=== PATIENT | male | born 1995 | race African-American/Black ===

== ENCOUNTER 2020-07-07 16:55 | Emergency (ER) | payer OTHER, SELFPAY ==
[2020-07-07 17:02] VITALS: BP 126/61; PULSE 85; RESP 16; TEMP 36.7; O2SAT 100; BMI 37.1
[2020-07-07 18:38] VITALS: BP 104/46; PULSE 83; RESP 16; TEMP 36.4; O2SAT 97
--- NOTE | 2020-07-07 19:55 | ED_ITS ---
HPI - Skin/Abscess/Foreign Bdy General Chief complaint: Skin/Abscess/Foreign Body Stated complaint: TAIL BONE PAIN Time Seen by Provider: 07/07/20 18:31 History of Present Illness HPI narrative: patient complains of pain in the buttock area for 3 or 4 days which is worsening, no fever, no injury Related Data Previous Rx's Medication Instructions Recorded doxycycline hyclate 100 mg PO BID 7 Days #14 cap 07/07/20 ibuprofen 600 mg PO Q6H PRN #20 tab 07/07/20 Allergies Allergy/AdvReac Type Severity Reaction Status Date / Time apple [APPLE] Allergy Severe HIVES Verified 07/07/20 18:01 nickel [NICKEL] Allergy Unknown UNKNOWN Verified 07/07/20 18:01 Review of Systems Review of Systems: patient denies fever chills no abdominal pain no changes of bowel or bladder no constipation no diarrhea no rectal bleeding, no other rashes Yes all other systems are reviewed and are negative PMFSH Past Medical History Source: nursing notes reviewed Medical History (Updated 07/07/20 @ 19:50 by SUSSY Sheppard) Asthma Testicular torsion Social History Social History Smoking Status: Never smoker Use of substances other than those prescribed or required for medical reasons: No Advance Directives: No Advance Directives Information Provided: Yes Physical Exam Vital Signs and I&O and Narrative: Vital Signs and I&O: Vital Signs Temp 97.5 F 07/07/20 18:38 Pulse 83 07/07/20 18:38 Resp 16 07/07/20 18:38 BP 104/46 L 07/07/20 18:38 Pulse Ox 97 07/07/20 18:38 Intake & Output 07/07/20 07/07/20 07/08/20 06:59 18:59 06:59 Weight 104.326 kg Body Mass Index 37.1 general appearance A&O x3, no acute distress Neck is supple Respiratory no distress Abdomen soft nontender Skin exam of the skin shows pilonidal redness and tenderness on both sides, there is induration there is no discharge there is no drainage, there is no surrounding cellulitis no surrounding erythema Neuro A&O x3 Course Course Course Narrative: pilonidal abscess procedure note for I and D The pilonidal area is cleansed with Betadine It was injected with 8 cc of 1% lidocaine Two 1 [place] cm incisions were made 1 on the left 1 on the right with drainage of some pus and both sides were packed Sterile dressing was placed Discharge Plan Discharge Clinical Impression: Abscess of skin or subcutaneous tissue Qualifiers: Site of cutaneous abscess: buttock Qualified Code(s): L02.31 - Cutaneous abscess of buttock Patient Disposition: Home, Self-Care Additional Instructions: return to ER in 2 days for packing removal and wound check Return any time for worse pain and swelling, fever, spreading redness, any worse condition or any concerns Prescriptions: New doxycycline hyclate 100 mg capsule 100 mg PO BID 7 Days Qty: 14 RF: 0 ibuprofen 600 mg tablet 600 mg PO Q6H PRN (Reason: pain) Qty: 20 RF: 0 Stand Alone Forms: Work/School Release Interventions: ED Discharge Assessment Last Done: 07/07/20 19:59 Discharge Date/Time: 07/07/20 20:00
== END 2020-07-07 20:00 | disposition home or self-care (01) ==
PROVIDERS: Emergency Provider Internal Medicine
DX: L02.31 Cutaneous abscess of buttock (principal)
CPT/HCPCS: 10080; 99283; 99284

== ENCOUNTER 2020-07-08 20:32 | Inpatient (IN) | payer OTHER, SELFPAY ==
[2020-07-08 20:36] VITALS: BP 98/57; PULSE 138; RESP 20; TEMP 38.8; O2SAT 96; BMI 37.1
--- NOTE | 2020-07-08 20:43 | ECG_ITS ---
Test Reason : PAIN Blood Pressure : / mmHG Vent. Rate : 099 BPM Atrial Rate : 099 BPM P-R Int : 158 ms QRS Dur : 090 ms QT Int : 328 ms P-R-T Axes : 056 -03 032 degrees QTc Int : 420 ms Normal sinus rhythm Normal ECG When compared with ECG of 12-SEP-2019 18:11, Heart rate has increased Referred By: Shira Angulo Electronically Signed By:SAMMIE MUSTAFA MD
--- NOTE | 2020-07-08 20:43 | XR_ITS ---
EXAMINATION: XR CHEST CLINICAL INFORMATION: Tachycardia COMPARISON: 08/03/2013 TECHNIQUE: Frontal view of the chest was obtained. FINDINGS: No significant abnormality is noted involving the heart, lungs, mediastinum, bony thorax or soft tissues. IMPRESSION: Unremarkable examination.
--- NOTE | 2020-07-08 20:48 | CT_ITS ---
EXAMINATION: CT ABDOMEN AND PELVIS WITHOUT CONTRAST CLINICAL INFORMATION: Pilonidal cyst. Sepsis. COMPARISON: None TECHNIQUE: Multidetector volumetric imaging was performed from the superior aspect of the liver through the pubic symphysis. Sagittal and coronal reformatted images were obtained on the technologist's workstation. This CT examination was performed using dose optimization techniques as appropriate, variously including the following: *Automated exposure control *Adjustment of mA and/or kV according to patient size (this includes techniques or standardized protocols for targeted exams where dose is matched to indication/reason for exam; i.e. extremities or head) *Use of iterative reconstruction technique DLP: 643 mGy-cm FINDINGS: LUNG BASES: The visualized lung bases are unremarkable. LIVER, GALLBLADDER, AND BILIARY TREE: Diffuse fatty infiltration with geographic fatty sparing along the gallbladder fossa. The gallbladder is unremarkable with no evidence of radiopaque gallstones, gallbladder wall thickening, or obvious pericholecystic inflammatory changes. PANCREAS: Unremarkable. SPLEEN: Unremarkable. ADRENAL GLANDS: Unremarkable. KIDNEYS AND URETERS: There are a few punctate nonobstructing calculi in each kidney. No hydronephrosis. BLADDER: Unremarkable. GASTROINTESTINAL TRACT: The small and large bowel are unremarkable. The appendix is unremarkable. ABDOMINAL WALL: There is skin thickening along the superior aspect of the gluteal cleft, with hazy attenuation of the underlying fat. Extending anterolaterally to the right and left from the gluteal cleft the soft tissue thickening with foci of air compatible with abscesses, larger on the right measuring 1.5 cm. LYMPH NODES: Normal. VASCULAR: Unremarkable. PELVIC VISCERA: Unremarkable. OSSEOUS STRUCTURES: Unremarkable. IMPRESSION: Subcutaneous collections with foci of gas and surrounding inflammatory changes adjacent to skin thickening of the superior gluteal cleft, possibly an infected pilonidal cyst. No abnormality of the underlying coccyx. No intra-abdominal/pelvic inflammatory process. Diffuse fatty infiltration of the liver. Bilateral punctate nephrolithiasis.
[2020-07-08] MEDS: 0.9 % Sodium Chloride 1,000 ML 999 ML IVCONT ×3 (20:54→21:52)
--- NOTE | 2020-07-08 21:05 | ED.WOUNDLAC ---
HPI - Wound/Laceration General Chief Complaint: Wound/Laceration Stated Complaint: wound Check Time Seen by Provider: 07/08/20 20:42 Source: patient Mode of arrival: ambulatory Limitations: no limitations History of Present Illness Onset (ago): day(s) ( 1 day) Location: other ( pilonidal) Related Data Previous Rx's Medication Instructions Recorded doxycycline hyclate 100 mg PO BID 7 Days #14 cap 07/07/20 ibuprofen 600 mg PO Q6H PRN #20 tab 07/07/20 Allergies Allergy/AdvReac Type Severity Reaction Status Date / Time apple [APPLE] Allergy Severe HIVES Verified 07/07/20 18:01 nickel [NICKEL] Allergy Unknown UNKNOWN Verified 07/07/20 18:01 PMF Past Medical History Medical History (Updated 07/08/20 @ 20:38 by [place]) Asthma Chronic recurrent pilonidal cyst Testicular torsion Social History Social History Smoking Status: Never smoker Physical Exam Vital Signs: Vital Signs: Vital Signs Temp Pulse Resp BP Pulse Ox 07/08/20 20:36 101.9 F H 138 H 20 98/57 L 96 Body Mass Index 37.1 Discharge Plan Discharge Prescriptions: No Action doxycycline hyclate 100 mg capsule 100 mg PO BID 7 Days Qty: 14 RF: 0 ibuprofen 600 mg tablet 600 mg PO Q6H PRN (Reason: pain) Qty: 20 RF: 0
[2020-07-08 21:07] LABS: MANUAL DIFF FLAG NO
[2020-07-08 21:09] LABS: Basophils Percent Auto 0.4 % (0-2); Hematocrit 41.6 % (42-52); Hemoglobin 14.8 g/dl (14.0-18.0); Imm Gran Abs Auto 0.06 X10*3/uL (0.00-0.03); Imm Gran Pct Auto 0.7 % (0.0-0.4); Lymphocytes Absolute Auto 1.1 X10*3/uL (1.2-4.9); Lymphocytes Percent Auto 11.8 % (20-40); Mean Corpuscular HGB Conc 35.6 g/dl (31.0-36.0); Mean Corpuscular Volume 84.4 fL (80-98); Mean Platelet Volume 10.5 fL (9.4-12.4); Monocytes Absolute Auto 0.8 X10*3/uL (0.1-1.2); Monocytes Percent Auto 9.2 % (2-11); Neutrophils Percent Auto 77.9 % (45-73); Platelet Count 215 X10*3/uL (160-400); Red Blood Count 4.93 X10*6/uL (4.60-5.80); Red Cell Distribution Width 11.7 % (11.0-16.0)
--- NOTE | 2020-07-08 21:09 | MHC.EDSEPSIS ---
Review of Systems Review of Systems Constitutional: positive fever and chills, No Weight loss ENT/Mouth: No Hearing loss, No Ear Pain, No Nasal Congestion, No Sinus Pain, No Hoarseness, No sore throat, No Rhinorrhea, No Swallowing Difficulty Cardiovascular: Positive tachycardia, No Chest Pain, No SOB Respiratory: No Cough, No Dyspnea Gastrointestinal: positive nausea, No Vomiting, No Diarrhea, No abdominal Pain, No Hematochezia, No Melena Genitourinary: No Dysuria, No Urinary Frequency, No Hematuria, No Urinary Incontinence, Musculoskeletal: positive back pain, sacral pain, and pain to the buttocks. Skin: Positive abscess site with purulent drainage, No Skin Lesions, No rash Neuro: No Weakness, No Numbness, No Paresthesias, no loss of bowel or bladder incontinence, no saddle anesthesia <Shira Angulo NP - Last Filed: 07/09/20 02:13> Physical Exam Vital Signs: Vital Signs Temp Pulse Resp BP Pulse Ox 07/08/20 23:14 98.8 F 07/08/20 22:29 112 H 18 97 07/08/20 21:50 102.6 F H 113 H 18 111/53 L 97 07/08/20 20:36 101.9 F H 138 H 20 98/57 L 96 Body Mass Index 37.1 <Shira Angulo NP - Last Filed: 07/09/20 02:13> Vital Signs Temp Pulse Resp BP Pulse Ox 07/08/20 23:14 98.8 F 07/08/20 22:29 112 H 18 97 07/08/20 21:50 102.6 F H 113 H 18 111/53 L 97 07/08/20 20:36 101.9 F H 138 H 20 98/57 L 96 Body Mass Index 37.1 <Elsa Mejía MD - Last Filed: 07/09/20 16:23> Appearance: Alert. Oriented X3. moderate distress, slightly diaphoretic, febrile, slight pallor , cranial nerves 2-12 intact, no focal neuro deficits. Eyes: PERLLA EOMI ENT: Pharynx normal. Neck: Normal inspection. Neck supple. CVS: tachycardic, pulses equal to all extremities Respiratory: No respiratory distress. Breath sounds normal. Abdomen: Soft and nontender. Skin: incision noted to coccyx consistent with report of pilonidal cyst I&D, packing in place, purulent drainage noted, tenderness to the perineal area, Normal skin turgor. Extremities: No lower extremity edema Neuro: Oriented X 3. No motor deficit. No sensory deficit. <Shira Angulo NP - Last Filed: 07/09/20 02:13> Course Course Course Narrative: patient's initial vital signs and presentation indicate sepsis. Sepsis protocol for fluids, 3 L as patient weighs 104 kg. order for ceftriaxone and vancomycin, Pain and antipyretics. CT scan of abdomen. <Shira Angulo NP - Last Filed: 07/09/20 02:13> Reevaluation(s) Reevaluation #1: blood sugar 410, patient usually takes 16 units of Humalog for blood sugar at this level, we will give 10 units at this time. Bilirubin is elevated at 1.1 ALT 44, while CBC is negative for leukocytosis I feel that patient does meet sepsis Requirements. <Shira Angulo NP - Last Filed: 07/09/20 02:13> Time: 22:03 <Shira Angulo NP - Last Filed: 07/09/20 02:13> Reevaluation #2: Discussion with hospitalist regarding admission for sepsis. She would like me to discuss this case with on-call surgery as he does have some free air as indicated on CT scan. Discussion with Dr. Mar, he feels that CT results are consistent with I&D that occurred yesterday. Dr. Mar will round on this patient tomorrow. These correspondence is were discussed with hospitalist. <Shira Angulo NP - Last Filed: 07/09/20 02:13> Consultations Consultation #1: Audie <Shira Angulo NP - Last Filed: 07/09/20 02:13> Time: 21:40 <Shira Angulo NP - Last Filed: 07/09/20 02:13> Consultation #2: Isabela <Shira Angulo NP - Last Filed: 07/09/20 02:13> Time: 23:06 <Shira Angulo NP - Last Filed: 07/09/20 02:13> MDM - Fever MDM Narrative Medical decision making narrative: perirectal abscess, bacteremia <Shira Rhodesto, FINANCIAL MANAGEMENT ANALYST - Last Filed: 07/09/20 02:13> Differential Diagnosis Differential diagnosis: Likely cellulitis, fever of unknown origin and sepsis <Shira BonillaDIDI toney - Last Filed: 07/09/20 02:13> Medical Records Attestation: I reviewed the patient's medical records. <Shira BonillaDIDI toney - Last Filed: 07/09/20 02:13> Lab Data Attestation: I reviewed the patient's lab results. <Jacksonmilo AdeleDIDI toney - Last Filed: 07/09/20 02:13> Result diagrams: : 07/09/20 06:52 07/09/20 06:52 <Jacksonmilo AdeleDIDI toney - Last Filed: 07/09/20 02:13> Labs: Lab Results 07/08/20 07/08/20 07/08/20 Range/Units 20:58 20:58 20:58 WBC 9.0 (4.8-10.8) X10*3/uL RBC 4.93 (4.60-5.80) X10*6/uL Hgb 14.8 (14.0-18.0) g/dl Hct 41.6 L (42-52) % MCV 84.4 (80-98) fL MCH 30.0 (27.0-33.0) pg MCHC 35.6 (31.0-36.0) g/dl RDW 11.7 (11.0-16.0) % Plt Count 215 (160-400) X10*3/uL MPV 10.5 (9.4-12.4) fL Immature Gran % (Auto) 0.7 H (0.0-0.4) % Neut % (Auto) 77.9 H (45-73) % Lymph % (Auto) 11.8 L (20-40) % Dixie % (Auto) 9.2 (2-11) % Eos % (Auto) 0.0 (0-4) % Baso % (Auto) 0.4 (0-2) % Lymph # (Auto) 1.1 L (1.2-4.9) X10*3/uL Dixie # (Auto) 0.8 (0.1-1.2) X10*3/uL Eos # (Auto) 0.0 (0.0-0.4) X10*3/uL Baso # (Auto) 0.0 (0.0-0.2) X10*3/uL Abs Immat Gran (auto) 0.06 H (0.00-0.03) X10*3/uL Absolute Neuts (auto) 7.0 (2.0-8.3) X10*3/uL Absolute Nucleated RBC 0.000 (0.0-0.012) X10*3/uL Nucleated RBC % (auto) 0.0 (0.0-0.2) /100WBC PT (10.8-13.0) SEC INR (0.9-1.1) Sodium (135-145) mmol/L Potassium (3.3-5.1) mmol/l Chloride (96-108) mmol/L Carbon Dioxide (22-29) mmol/L Anion Gap (12-20) BUN (9-16) mg/dL Creatinine (0.5-1.4) mg/dL Estim Creat Clear Calc Estimated GFR POC Glucose (60-115) mg/dL Random Glucose (60-115) mg/dL Lactic Acid 1.5 (0.5-2.0) mmol/L Calcium (8.4-10.2) mg/dL Magnesium (1.6-2.6) mg/dL Total Bilirubin 1.1 H (0.0-1.0) mg/dL Direct Bilirubin 0.4 (0.0-0.5) mg/dL AST 33 (5-37) U/L ALT 44 H (0-40) U/L Alkaline Phosphatase 76 (39-117) U/L Troponin I High Sens (<3.5-35.0) ng/L Total Protein 6.8 (6.5-8.0) g/dL Albumin 4.2 (3.5-5.0) g/dL Lipase (8-78) U/L 07/08/20 07/08/20 07/08/20 Range/Units 20:58 20:58 20:58 WBC (4.8-10.8) X10*3/uL RBC (4.60-5.80) X10*6/uL Hgb (14.0-18.0) g/dl Hct (42-52) % MCV (80-98) fL MCH (27.0-33.0) pg MCHC (31.0-36.0) g/dl RDW (11.0-16.0) % Plt Count (160-400) X10*3/uL MPV (9.4-12.4) fL Immature Gran % (Auto) (0.0-0.4) % Neut % (Auto) (45-73) % Lymph % (Auto) (20-40) % Dixie % (Auto) (2-11) % Eos % (Auto) (0-4) % Baso % (Auto) (0-2) % Lymph # (Auto) (1.2-4.9) X10*3/uL Dixie # (Auto) (0.1-1.2) X10*3/uL Eos # (Auto) (0.0-0.4) X10*3/uL Baso # (Auto) (0.0-0.2) X10*3/uL Abs Immat Gran (auto) (0.00-0.03) X10*3/uL Absolute Neuts (auto) (2.0-8.3) X10*3/uL Absolute Nucleated RBC (0.0-0.012) X10*3/uL Nucleated RBC % (auto) (0.0-0.2) /100WBC PT 14.2 H (10.8-13.0) SEC INR 1.2 H (0.9-1.1) Sodium 132 L (135-145) mmol/L Potassium 3.3 (3.3-5.1) mmol/l Chloride 99 (96-108) mmol/L Carbon Dioxide 21 L (22-29) mmol/L Anion Gap 15 (12-20) BUN 8 L (9-16) mg/dL Creatinine 1.06 (0.5-1.4) mg/dL Estim Creat Clear Calc 123.7 Estimated GFR > 60 POC Glucose (60-115) mg/dL Random Glucose 410 H* (60-115) mg/dL Lactic Acid (0.5-2.0) mmol/L Calcium 8.7 (8.4-10.2) mg/dL Magnesium 1.6 (1.6-2.6) mg/dL Total Bilirubin (0.0-1.0) mg/dL Direct Bilirubin (0.0-0.5) mg/dL AST (5-37) U/L ALT (0-40) U/L Alkaline Phosphatase (39-117) U/L Troponin I High Sens 15.1 (<3.5-35.0) ng/L Total Protein (6.5-8.0) g/dL Albumin (3.5-5.0) g/dL Lipase 19 (8-78) U/L 07/08/20 Range/Units 23:06 WBC (4.8-10.8) X10*3/uL RBC (4.60-5.80) X10*6/uL Hgb (14.0-18.0) g/dl Hct (42-52) % MCV (80-98) fL MCH (27.0-33.0) pg MCHC (31.0-36.0) g/dl RDW (11.0-16.0) % Plt Count (160-400) X10*3/uL MPV (9.4-12.4) fL Immature Gran % (Auto) (0.0-0.4) % Neut % (Auto) (45-73) % Lymph % (Auto) (20-40) % Dixie % (Auto) (2-11) % Eos % (Auto) (0-4) % Baso % (Auto) (0-2) % Lymph # (Auto) (1.2-4.9) X10*3/uL Dixie # (Auto) (0.1-1.2) X10*3/uL Eos # (Auto) (0.0-0.4) X10*3/uL Baso # (Auto) (0.0-0.2) X10*3/uL Abs Immat Gran (auto) (0.00-0.03) X10*3/uL Absolute Neuts (auto) (2.0-8.3) X10*3/uL Absolute Nucleated RBC (0.0-0.012) X10*3/uL Nucleated RBC % (auto) (0.0-0.2) /100WBC PT (10.8-13.0) SEC INR (0.9-1.1) Sodium (135-145) mmol/L Potassium (3.3-5.1) mmol/l Chloride (96-108) mmol/L Carbon Dioxide (22-29) mmol/L Anion Gap (12-20) BUN (9-16) mg/dL Creatinine (0.5-1.4) mg/dL Estim Creat Clear Calc Estimated GFR POC Glucose 329 H (60-115) mg/dL Random Glucose (60-115) mg/dL Lactic Acid (0.5-2.0) mmol/L Calcium (8.4-10.2) mg/dL Magnesium (1.6-2.6) mg/dL Total Bilirubin (0.0-1.0) mg/dL Direct Bilirubin (0.0-0.5) mg/dL AST (5-37) U/L ALT (0-40) U/L Alkaline Phosphatase (39-117) U/L Troponin I High Sens (<3.5-35.0) ng/L Total Protein (6.5-8.0) g/dL Albumin (3.5-5.0) g/dL Lipase (8-78) U/L <Shira Angulo NP - Last Filed: 07/09/20 02:13> Lab Results 07/08/20 07/08/20 07/08/20 Range/Units 20:58 20:58 20:58 WBC 9.0 (4.8-10.8) X10*3/uL RBC 4.93 (4.60-5.80) X10*6/uL Hgb 14.8 (14.0-18.0) g/dl Hct 41.6 L (42-52) % MCV 84.4 (80-98) fL MCH 30.0 (27.0-33.0) pg MCHC 35.6 (31.0-36.0) g/dl RDW 11.7 (11.0-16.0) % Plt Count 215 (160-400) X10*3/uL MPV 10.5 (9.4-12.4) fL Immature Gran % (Auto) 0.7 H (0.0-0.4) % Neut % (Auto) 77.9 H (45-73) % Lymph % (Auto) 11.8 L (20-40) % Dixie % (Auto) 9.2 (2-11) % Eos % (Auto) 0.0 (0-4) % Baso % (Auto) 0.4 (0-2) % Lymph # (Auto) 1.1 L (1.2-4.9) X10*3/uL Dixie # (Auto) 0.8 (0.1-1.2) X10*3/uL Eos # (Auto) 0.0 (0.0-0.4) X10*3/uL Baso # (Auto) 0.0 (0.0-0.2) X10*3/uL Abs Immat Gran (auto) 0.06 H (0.00-0.03) X10*3/uL Absolute Neuts (auto) 7.0 (2.0-8.3) X10*3/uL Absolute Nucleated RBC 0.000 (0.0-0.012) X10*3/uL Nucleated RBC % (auto) 0.0 (0.0-0.2) /100WBC PT (10.8-13.0) SEC INR (0.9-1.1) Sodium (135-145) mmol/L Potassium (3.3-5.1) mmol/l Chloride (96-108) mmol/L Carbon Dioxide (22-29) mmol/L Anion Gap (12-20) BUN (9-16) mg/dL Creatinine (0.5-1.4) mg/dL Estim Creat Clear Calc Estimated GFR POC Glucose (60-115) mg/dL Random Glucose (60-115) mg/dL Lactic Acid 1.5 (0.5-2.0) mmol/L Calcium (8.4-10.2) mg/dL Magnesium (1.6-2.6) mg/dL Total Bilirubin 1.1 H (0.0-1.0) mg/dL Direct Bilirubin 0.4 (0.0-0.5) mg/dL AST 33 (5-37) U/L ALT 44 H (0-40) U/L Alkaline Phosphatase 76 (39-117) U/L Troponin I High Sens (<3.5-35.0) ng/L Total Protein 6.8 (6.5-8.0) g/dL Albumin 4.2 (3.5-5.0) g/dL Lipase (8-78) U/L 07/08/20 07/08/20 07/08/20 Range/Units 20:58 20:58 20:58 WBC (4.8-10.8) X10*3/uL RBC (4.60-5.80) X10*6/uL Hgb (14.0-18.0) g/dl Hct (42-52) % MCV (80-98) fL MCH (27.0-33.0) pg MCHC (31.0-36.0) g/dl RDW (11.0-16.0) % Plt Count (160-400) X10*3/uL MPV (9.4-12.4) fL Immature Gran % (Auto) (0.0-0.4) % Neut % (Auto) (45-73) % Lymph % (Auto) (20-40) % Dixie % (Auto) (2-11) % Eos % (Auto) (0-4) % Baso % (Auto) (0-2) % Lymph # (Auto) (1.2-4.9) X10*3/uL Dixie # (Auto) (0.1-1.2) X10*3/uL Eos # (Auto) (0.0-0.4) X10*3/uL Baso # (Auto) (0.0-0.2) X10*3/uL Abs Immat Gran (auto) (0.00-0.03) X10*3/uL Absolute Neuts (auto) (2.0-8.3) X10*3/uL Absolute Nucleated RBC (0.0-0.012) X10*3/uL Nucleated RBC % (auto) (0.0-0.2) /100WBC PT 14.2 H (10.8-13.0) SEC INR 1.2 H (0.9-1.1) Sodium 132 L (135-145) mmol/L Potassium 3.3 (3.3-5.1) mmol/l Chloride 99 (96-108) mmol/L Carbon Dioxide 21 L (22-29) mmol/L Anion Gap 15 (12-20) BUN 8 L (9-16) mg/dL Creatinine 1.06 (0.5-1.4) mg/dL Estim Creat Clear Calc 123.7 Estimated GFR > 60 POC Glucose (60-115) mg/dL Random Glucose 410 H* (60-115) mg/dL Lactic Acid (0.5-2.0) mmol/L Calcium 8.7 (8.4-10.2) mg/dL Magnesium 1.6 (1.6-2.6) mg/dL Total Bilirubin (0.0-1.0) mg/dL Direct Bilirubin (0.0-0.5) mg/dL AST (5-37) U/L ALT (0-40) U/L Alkaline Phosphatase (39-117) U/L Troponin I High Sens 15.1 (<3.5-35.0) ng/L Total Protein (6.5-8.0) g/dL Albumin (3.5-5.0) g/dL Lipase 19 (8-78) U/L 07/08/ Range/Units 23:06 WBC (4.8-10.8) X10*3/uL RBC (4.60-5.80) X10*6/uL Hgb (14.0-18.0) g/dl Hct (42-52) % MCV (80-98) fL MCH (27.0-33.0) pg MCHC (31.0-36.0) g/dl RDW (11.0-16.0) % Plt Count (160-400) X10*3/uL MPV (9.4-12.4) fL Immature Gran % (Auto) (0.0-0.4) % Neut % (Auto) (45-73) % Lymph % (Auto) (20-40) % Dixie % (Auto) (2-11) % Eos % (Auto) (0-4) % Baso % (Auto) (0-2) % Lymph # (Auto) (1.2-4.9) X10*3/uL Dixie # (Auto) (0.1-1.2) X10*3/uL Eos # (Auto) (0.0-0.4) X10*3/uL Baso # (Auto) (0.0-0.2) X10*3/uL Abs Immat Gran (auto) (0.00-0.03) X10*3/uL Absolute Neuts (auto) (2.0-8.3) X10*3/uL Absolute Nucleated RBC (0.0-0.012) X10*3/uL Nucleated RBC % (auto) (0.0-0.2) /100WBC PT (10.8-13.0) SEC INR (0.9-1.1) Sodium (135-145) mmol/L Potassium (3.3-5.1) mmol/l Chloride (96-108) mmol/L Carbon Dioxide (22-29) mmol/L Anion Gap (12-20) BUN (9-16) mg/dL Creatinine (0.5-1.4) mg/dL Estim Creat Clear Calc Estimated GFR POC Glucose 329 H (60-115) mg/dL Random Glucose (60-115) mg/dL Lactic Acid (0.5-2.0) mmol/L Calcium (8.4-10.2) mg/dL Magnesium (1.6-2.6) mg/dL Total Bilirubin (0.0-1.0) mg/dL Direct Bilirubin (0.0-0.5) mg/dL AST (5-37) U/L ALT (0-40) U/L Alkaline Phosphatase (39-117) U/L Troponin I High Sens (<3.5-35.0) ng/L Total Protein (6.5-8.0) g/dL Albumin (3.5-5.0) g/dL Lipase (8-78) U/L <Elsa Mejía MD - Last Filed: 07/09/20 16:23> Imaging Data CT scan - pelvis: Attestation: I personally reviewed and interpreted this imaging study as follows: <Shira Angulo NP - Last Filed: 07/09/20 02:13> Radiologist's impression: FINDINGS: LUNG BASES: The visualized lung bases are unremarkable. LIVER, GALLBLADDER, AND BILIARY TREE: Diffuse fatty infiltration with geographic fatty sparing along the gallbladder fossa. The gallbladder is unremarkable with no evidence of radiopaque gallstones, gallbladder wall thickening, or obvious pericholecystic inflammatory changes. PANCREAS: Unremarkable. SPLEEN: Unremarkable. ADRENAL GLANDS: Unremarkable. KIDNEYS AND URETERS: There are a few punctate nonobstructing calculi in each kidney. No hydronephrosis. BLADDER: Unremarkable. GASTROINTESTINAL TRACT: The small and large bowel are unremarkable. The appendix is unremarkable. ABDOMINAL WALL: There is skin thickening along the superior aspect of the gluteal cleft, with hazy attenuation of the underlying fat. Extending anterolaterally to the right and left from the gluteal cleft the soft tissue thickening with foci of air compatible with abscesses, larger on the right measuring 1.5 cm. LYMPH NODES: Normal. VASCULAR: Unremarkable. PELVIC VISCERA: Unremarkable. OSSEOUS STRUCTURES: Unremarkable. IMPRESSION: Subcutaneous collections with foci of gas and surrounding inflammatory changes adjacent to skin thickening of the superior gluteal cleft, possibly an infected pilonidal cyst. No abnormality of the underlying coccyx. No intra-abdominal/pelvic inflammatory process. Diffuse fatty infiltration of the liver. Bilateral punctate nephrolithiasis. <Shira Angulo NP - Last Filed: 07/09/20 02:13> Chest x-ray: Attestation: I personally reviewed and interpreted this imaging study as follows: <Shira Angulo NP - Last Filed: 07/09/20 02:13> Radiologist's impression: TECHNIQUE: Frontal view of the chest was obtained. FINDINGS: No significant abnormality is noted involving the heart, lungs, mediastinum, bony thorax or soft tissues. IMPRESSION: Unremarkable examination. <Shira Angulo NP - Last Filed: 07/09/20 02:13> ECG Data Attestation: I personally reviewed and interpreted this ECG as follows: <Shira Angulo NP - Last Filed: 07/09/20 02:13> ECG interpretation date: 07/08/20 <Shira Angulo NP - Last Filed: 07/09/20 02:13> ECG interpretation time: 22:34 <Shira Angulo NP - Last Filed: 07/09/20 02:13> Interpretation: Vent. Rate : 099 BPM Atrial Rate : 099 BPM P-R Int : 158 ms QRS Dur : 090 ms QT Int : 328 ms P-R-T Axes : 056 -03 032 degrees QTc Int : 420 ms Normal sinus rhythm Normal ECG When compared with ECG of 12-SEP-2019 18:11, Non-specific change in ST segment in Anterior leads <Shira Angulo NP - Last Filed: 07/09/20 02:13> Critical Care Time Critical Care Time Critical Care Time: Yes <Shira Angulo NP - Last Filed: 07/09/20 02:13> Total Critical Care Time: 65 <Shira Angulo NP - Last Filed: 07/09/20 02:13> Attestation: I have personally provided critical care time exclusive of time spent on separately billable procedures. Time includes review of laboratory data, radiology results, discussion with consultants, and monitoring for potential decompensation. Interventions were performed as documented. <Shira Angulo NP - Last Filed: 07/09/20 02:13> Discharge Plan Discharge Clinical Impression: Sepsis Qualifiers: Sepsis type: sepsis due to unspecified organism Sepsis acute organ dysfunction status: with acute organ dysfunction Severe sepsis acute organ dysfunction type: unspecified Severe sepsis shock status: without septic shock Qualified Code(s): A41.9 - Sepsis, unspecified organism <Shira Angulo NP - Last Filed: 07/09/20 02:13> Patient Disposition: Admitted As Inpatient <Shira Angulo NP - Last Filed: 07/09/20 02:13> Interventions: Admission Worksheet (ED) Last Done: 07/09/20 03:25 <Shira Angulo NP - Last Filed: 07/09/20 02:13> Discharge Date/Time: 07/09/20 03:25 <Shira Angulo NP - Last Filed: 07/09/20 02:13> PMFSH Past Medical History Attestation statement: The following information was validated with the patient. <Shira Angulo NP - Last Filed: 07/09/20 02:13> Source: old records reviewed <Shira Angulo NP - Last Filed: 07/09/20 02:13> Medical History: Medical History (Updated 07/09/20 @ 08:48 by Enrike Mar MD) Asthma Chronic recurrent pilonidal cyst Diabetes mellitus type 2 in obese Testicular torsion <Shira Angulo NP - Last Filed: 07/09/20 02:13> Surgical History: Surgical History (Updated 07/09/20 @ 08:49 by Enrike Mar MD) History of incision and drainage <Shira Angulo NP - Last Filed: 07/09/20 02:13> Social History Social History: Social History Household Members: Family Housing: Apartment Do you presently have visiting nurse or other home services: No Alcohol intake: never Smoking Status: Never smoker Smoked in Last 30 Days: No Patient Interested in Nicotine Replacement: No Patient Given Instructions on How to Stop Smoking: No Second Hand Smoke Exposure: No Use of substances other than those prescribed or required for medical reasons: No Currently Displaying Signs/Symptoms of Drug Intoxication Withdrawal: No Any prior treatment program specific to substance use: No Have you been hit, kicked, punched, or otherwise hurt by someone within the past year? If so, by whom?: No Do you feel safe in your current relationship?: No Current Relationship Is there a partner from a previous relationship who is making you feel unsafe now?: No Are you made to feel afraid or neglected: No Advance Directives: No Advance Directives Information Provided: Yes Do you have thoughts of harming others: None Do you have a plan to hurt others: No Plan Recently lost weight without trying: No <Shira Angulo NP - Last Filed: 07/09/20 02:13>
[2020-07-08 21:14] LABS: INTERNATIONAL NORM RATIO 1.2 (0.9-1.1); Prothrombin Time 14.2 SEC (10.8-13.0)
[2020-07-08 21:28] LABS: Lactic Acid 1.5 mmol/L (0.5-2.0)
[2020-07-08 21:32] LABS: Alanine Aminotransferase 44 U/L (0-40); Albumin Level 4.2 g/dL (3.5-5.0); Alkaline Phosphatase 76 U/L (39-117); Aspartate Amino Transferase 33 U/L (5-37); Bilirubin Direct 0.4 mg/dL (0.0-0.5); Bilirubin Total 1.1 mg/dL (0.0-1.0); Total Protein 6.8 g/dL (6.5-8.0)
[2020-07-08 21:38] LABS: Troponin-I High Sensitivity 15.1 ng/L (<3.5-35.0)
[2020-07-08 21:50] VITALS: BP 111/53; PULSE 113; RESP 18; TEMP 39.2; O2SAT 97
[2020-07-08 21:50] LABS: Anion Gap 15 (12-20); Blood Urea Nitrogen 8 mg/dL (9-16); Calcium 8.7 mg/dL (8.4-10.2); Carbon Dioxide 21 mmol/L (22-29); Chloride 99 mmol/L (96-108); Creatinine Clr Calc Pharmacy 123.7; Estimated Glomerular Filt Rate > 60; Glucose Random 410 mg/dL (60-115); Lipase 19 U/L (8-78); Magnesium 1.6 mg/dL (1.6-2.6); Potassium 3.3 mmol/l (3.3-5.1); Sodium 132 mmol/L (135-145)
[2020-07-08] MEDS: ondansetron HCL 4 MG/2 ML VIAL IVPUSH (21:51)
[2020-07-08] MEDS: cefTRIAXone sodium 1 GM in 0.9 % Sodium Chloride 50 ML IV (21:51)
[2020-07-08] MEDS: Ketorolac Tromethamine 30 MG/ML VIAL IVPUSH (21:51)
[2020-07-08] MEDS: Insulin Lispro 100 UNIT/ML 3 ML VIAL 10 UNIT SUBCUT (22:24)
[2020-07-08] MEDS: Acetaminophen 325 MG TABLET 975 MG PO (22:25)
[2020-07-08 22:29] VITALS: PULSE 112; RESP 18; O2SAT 97
--- NOTE | 2020-07-08 22:32 | PC.NURSE ---
Morphine held due to boderline low b/p's as charted. proivider aware, pt received tylenol for discomfort and fever. fluids infusing wo
[2020-07-08 23:10] LABS: Glucose, Whole Blood 329 mg/dL (60-115)
[2020-07-08 23:14] VITALS: TEMP 37.1
--- NOTE | 2020-07-08 23:48 | P.HPIM_ITS ---
History of Present Illness Date of Service: 07/08/20 Chief Complaint: Fever this is a 24-year-old male with past medical history of diabetes who presents to the hospital with complaints of fever. Of note patient was seen in the ED yesterday 07/07/2020 for pilonidal cyst status post I&D. He was informed by the ED physician to return to the office if he develops fever. Patient reports that he developed fever as high as 103 this afternoon and decided to come back to the ED. He has significant amount of chills, no abdominal pain nausea or vomiting, no diarrhea constipation, no urinary symptoms, no difficulty moving his bowels, he has pain around the I&D and some drainage with no other complications.On arr ival to the ED patient hemodynamically stable with a temperature of 102.6?, heart rate of 113, blood pressure of 111/53, respiratory rate of 18, and 97% on room air labs are significant for normal WBC count, glucose of for 10, otherwise unremarkable. CT abdomen pelvis shows subcutaneous collections with foci of gas and surrounding inflammatory changes possibly infected pilonidal cyst surgery was consulted and will see patient in a.m. patient will be admitted for sepsis secondary to pilonidal cyst past medical history: Diabetes, recurrent pilonidal cyst past surgical history: Testicular torsion family history: Significant for diabetes, hypertension, cancer social history: Comes from home, denies tobacco alcohol or illicit drugs Review of Systems Review of Systems: Yes all other systems are reviewed and are negative [facility] Medical History (Updated 07/09/20 @ 02:03 by Shira Angulo NP) Asthma Chronic recurrent pilonidal cyst Testicular torsion Social History Alcohol intake: never Smoking Status: Never smoker Use of substances other than those prescribed or required for medical reasons: No Advance Directives: No Advance Directives Information Provided: Yes Meds Allergies Allergy/AdvReac Type Severity Reaction Status Date / Time apple [APPLE] Allergy Severe HIVES Verified 07/07/20 18:01 nickel [NICKEL] Allergy Unknown UNKNOWN Verified 07/07/20 18:01 Physical Exam Vital Signs and Narrative: Vital Signs: Last Vital Signs Temp 98.8 F 07/08/20 23:14 Pulse 112 H 07/08/20 22:29 Resp 18 07/08/20 22:29 BP 111/53 L 07/08/20 21:50 Pulse Ox 97 07/08/20 22:29 Body Mass Index 37.1 Const: General: cooperative and no acute distress Orientation/consciousness: patient oriented x3 Eyes: General: appearance normal, both eyes and all related structures Pupils: Equal, round and reactive pupils present Resp: Effort & Inspection: normal respiratory effort, able to speak in complete sentences and abnormal respiratory pattern Auscultation: clear to auscultation bilaterally Cardio: Rate: regular rate Rhythm: regular rhythm GI: Palpation (GI): Soft to palpation Auscultation: normal bowel sounds : Other: painful pilonidal cyst, no noted drainage Skin: General skin exam: no rashes or lesions noted Neuro: General: patient oriented x3 Cranial nerves: Yes Equal, round and reactive pupils present Cognition (Neuro): normal cognition Extrem: General: Yes normal to inspection and Yes no pedal edema Results Labs Labs: Laboratory Tests 07/08/20 07/08/20 07/08/20 20:58 20:58 20:58 WBC 9.0 RBC 4.93 Hgb 14.8 Hct 41.6 L MCV 84.4 MCH 30.0 MCHC 35.6 RDW 11.7 Plt Count 215 MPV 10.5 Immature Gran % (Auto) 0.7 H Neut % (Auto) 77.9 H Lymph % (Auto) 11.8 L [place] % (Auto) 9.2 Eos % (Auto) 0.0 Baso % (Auto) 0.4 Lymph # (Auto) 1.1 L [place] # (Auto) 0.8 Eos # (Auto) 0.0 Baso # (Auto) 0.0 Abs Immat Gran (auto) 0.06 H Absolute Neuts (auto) 7.0 Absolute Nucleated RBC 0.000 Nucleated RBC % (auto) 0.0 PT INR Sodium Potassium Chloride Carbon Dioxide Anion Gap BUN Creatinine Estim Creat Clear Calc Estimated GFR POC Glucose Random Glucose Lactic Acid 1.5 Calcium Magnesium Total Bilirubin 1.1 H Direct Bilirubin 0.4 AST 33 ALT 44 H Alkaline Phosphatase 76 Troponin I High Sens Total Protein 6.8 Albumin 4.2 Lipase 07/08/20 07/08/20 07/08/20 20:58 20:58 20:58 WBC RBC Hgb Hct MCV MCH MCHC RDW Plt Count MPV Immature Gran % (Auto) Neut % (Auto) Lymph % (Auto) [place] % (Auto) Eos % (Auto) Baso % (Auto) Lymph # (Auto) [place] # (Auto) Eos # (Auto) Baso # (Auto) Abs Immat Gran (auto) Absolute Neuts (auto) Absolute Nucleated RBC Nucleated RBC % (auto) PT 14.2 H INR 1.2 H Sodium 132 L Potassium 3.3 Chloride 99 Carbon Dioxide 21 L Anion Gap 15 BUN 8 L Creatinine 1.06 Estim Creat Clear Calc 123.7 Estimated GFR > 60 POC Glucose Random Glucose 410 H* Lactic Acid Calcium 8.7 Magnesium 1.6 Total Bilirubin Direct Bilirubin AST ALT Alkaline Phosphatase Troponin I High Sens 15.1 Total Protein Albumin Lipase 19 07/08/20 23:06 WBC RBC Hgb Hct MCV MCH MCHC RDW Plt Count MPV Immature Gran % (Auto) Neut % (Auto) Lymph % (Auto) [place] % (Auto) Eos % (Auto) Baso % (Auto) Lymph # (Auto) [place] # (Auto) Eos # (Auto) Baso # (Auto) Abs Immat Gran (auto) Absolute Neuts (auto) Absolute Nucleated RBC Nucleated RBC % (auto) PT INR Sodium Potassium Chloride Carbon Dioxide Anion Gap BUN Creatinine Estim Creat Clear Calc Estimated GFR POC Glucose 329 H Random Glucose Lactic Acid Calcium Magnesium Total Bilirubin Direct Bilirubin AST ALT Alkaline Phosphatase Troponin I High Sens Total Protein Albumin Lipase Imaging CT scan - abdomen: My impression: IMPRESSION: Subcutaneous collections with foci of gas and surrounding inflammatory changes adjacent to skin thickening of the superior gluteal cleft, possibly an infected pilonidal cyst. No abnormality of the underlying coccyx. No intra-abdominal/pelvic inflammatory process. Assessment and Plan (1) Sepsis: Status: Acute (2) Infected pilonidal cyst: Status: Acute (3) Diabetes mellitus type 2 in obese: Status: Acute (4) Asthma: Status: Acute This is a 25-year-old male with past medical history of diabetes and asthma presents to the hospital with infected pilonidal cyst Status post I&D on 07/07/2020 # sepsis - patient tachycardic, febrile, and meets sepsis criteria - source most likely pilonidal cyst - underwent I&D yesterday and was sent home with doxycycline patient reports compliance - CT as above Plan: - Iv abx - blood cultures - no hypotention or lactic acidosis, no fluids # Infected Pilonidal cyst - s/p I&D on 07/07 - Has hx of recurrence Plan: - Iv ceftriaxone - Blood cultures - surgical consult # Asthma - No exacerbation - monitor # DM - On insulin at home but unclear how much - WIll place on LDSSI - diabetic diet - POC QIDACHS DVT ppx: Joi DOS 07/08/2020
[2020-07-09] VITALS (9 sets, daily range): BP systolic 104–130; BP diastolic 48–66; PULSE 79–103; RESP 16–18; TEMP 36.6–37.3; O2SAT 96–99
--- NOTE | 2020-07-09 03:10 | PC.NURSE ---
report given to the floor
[2020-07-09] MEDS: 0.9 % Sodium Chloride Flush 3 ML SYRINGE IVFLUSH ×3 (05:32→16:02)
[2020-07-09] MEDS: 0.9 % Sodium Chloride 1,000 ML 999 ML IVCONT (05:32)
[2020-07-09 07:28] LABS: Glucose, Whole Blood 255 mg/dL (60-115)
[2020-07-09 07:55] LABS: MANUAL DIFF FLAG NO
[2020-07-09 08:09] LABS: Basophils Percent Auto 0.3 % (0-2); Hematocrit 37.2 % (42-52); Hemoglobin 13.2 g/dl (14.0-18.0); Imm Gran Abs Auto 0.04 X10*3/uL (0.00-0.03); Imm Gran Pct Auto 0.6 % (0.0-0.4); Lymphocytes Absolute Auto 0.8 X10*3/uL (1.2-4.9); Lymphocytes Percent Auto 12.6 % (20-40); Mean Corpuscular HGB Conc 35.5 g/dl (31.0-36.0); Mean Corpuscular Hemoglobin 30.6 pg (27.0-33.0); Mean Corpuscular Volume 86.1 fL (80-98); Mean Platelet Volume 10.9 fL (9.4-12.4); Monocytes Absolute Auto 0.7 X10*3/uL (0.1-1.2); Monocytes Percent Auto 10.7 % (2-11); Neutrophils Absolute Auto 4.7 X10*3/uL (2.0-8.3); Neutrophils Percent Auto 75.8 % (45-73); Platelet Count 168 X10*3/uL (160-400); Red Blood Count 4.32 X10*6/uL (4.60-5.80); Red Cell Distribution Width 11.9 % (11.0-16.0); White Blood Count 6.2 X10*3/uL (4.8-10.8)
[2020-07-09] MEDS: Insulin Lispro 100 UNIT/ML 3 ML VIAL SUBCUT ×4 (08:24→21:50)
[2020-07-09 08:42] LABS: Anion Gap 14 (12-20); Blood Urea Nitrogen 6 mg/dL (9-16); Carbon Dioxide 22 mmol/L (22-29); Chloride 105 mmol/L (96-108); Creatinine Clr Calc Pharmacy 163.9; Estimated Glomerular Filt Rate > 60; Glucose Random 262 mg/dL (60-115); Potassium 3.6 mmol/l (3.3-5.1); Sodium 137 mmol/L (135-145)
--- NOTE | 2020-07-09 08:43 | PM.CNGS ---
History of Present Illness Consult details Consult date: 07/09/20 Reason for consult: other ( pilonidal cyst abscess) Requesting physician: Sal Bronson Narrative: 24-year-old male patient presenting with his 1st episode of pilonidal cyst abscess. He presented to the emergency department 2 days ago and underwent bilateral incision and drainage. This produced a small purulence collection from each side. Both wounds were packed and covered with sterile dressings. Patient returned last evening with increased pain and complaints of feeling lousy. He was noted to be hypotensive and received fluid boluses and antibiotics for sepsis. WBC was normal. A CT of the abdomen pelvis indicated a subcutaneous fluid collection with air corresponding to the area of pilonidal cyst. Patient was admitted to the hospitalist service for further management and antibiotics. This morning he reports a decrease in the amount of abdominal pain and overall he feels much improved. He reports a low-grade fever during the night but was improved this morning. He denies a prior history of pilonidal cyst infections. Review of Systems Constitutional: Constitutional: Denies chills, Denies fever(s) and Denies poor appetite Cardiovascular: Cardiovascular: Denies chest pain, Denies rapid heart rate, Denies palpitations and Denies slow heart rate Respiratory: Respiratory: Denies chest congestion, Denies cough, Denies pain on inspiration and Denies wheezing Gastrointestinal: Gastrointestinal: Reports abdominal pain, Reports bloating, Reports diarrhea, Reports nausea and Reports vomiting Comments: Patient reports discharge from the incision and drainage site as well as localized pain. Genitourinary: Genitourinary: Denies difficulty urinating Musculoskeletal: Musculoskeletal: Denies no additional musculoskeletal complaints Integumentary/Breasts: Skin/Breast: Denies change in pigmentation, Denies erythema and Denies rash Psychiatric: Psychiatric: Denies anxiety and Denies depression Endocrine: Endocrine: Denies palpitations Hematologic/Lymphatic: Hematologic/Lymphatic: Denies easy bleeding, Denies easy bruising and Denies lymphadenopathy Allergic/Immunologic: Allergic/Immunologic: Denies wheezing PMFSH Past Medical History Medical History (Updated 07/09/20 @ 08:48 by Enrike Mar MD) Asthma Chronic recurrent pilonidal cyst Diabetes mellitus type 2 in obese Testicular torsion Functional capacity: independent ambulation Surgical History Surgical History (Updated 07/09/20 @ 08:49 by Enrike Mar MD) History of incision and drainage Social History Social History Household Members: Family Housing: Apartment Do you presently have visiting nurse or other home services: No Alcohol intake: never Smoking Status: Never smoker Smoked in Last 30 Days: No Patient Interested in Nicotine Replacement: No Patient Given Instructions on How to Stop Smoking: No Second Hand Smoke Exposure: No Use of substances other than those prescribed or required for medical reasons: No Currently Displaying Signs/Symptoms of Drug Intoxication Withdrawal: No Any prior treatment program specific to substance use: No Have you been hit, kicked, punched, or otherwise hurt by someone within the past year? If so, by whom?: No Do you feel safe in your current relationship?: No Current Relationship Is there a partner from a previous relationship who is making you feel unsafe now?: No Are you made to feel afraid or neglected: No Advance Directives: No Advance Directives Information Provided: Yes Do you have thoughts of harming others: None Do you have a plan to hurt others: No Plan Recently lost weight without trying: No Meds Allergies Allergy/AdvReac Type Severity Reaction Status Date / Time apple [APPLE] Allergy Severe HIVES Verified 07/07/20 18:01 nickel [NICKEL] Allergy Unknown UNKNOWN Verified 07/07/20 18:01 Physical Exam Vital Signs: Vital Signs: Vital Signs Temp Pulse Resp BP Pulse Ox 07/09/20 07:47 99.1 F 100 18 130/62 99 07/09/20 07:16 99.1 F 99 18 114/66 96 07/09/20 03:34 98.0 F 100 18 125/60 99 07/09/20 02:00 85 16 104/62 99 07/08/20 23:14 98.8 F 07/08/20 22:29 112 H 18 97 07/08/20 21:50 102.6 F H 113 H 18 111/53 L 97 07/08/20 20:36 101.9 F H 138 H 20 98/57 L 96 Body Mass Index 37.1 Const: General: healthy appearing and no acute distress Nutritional Appearance: well nourished Orientation/consciousness: patient oriented x3 Eyes: General: appearance normal, both eyes and all related structures Sclerae: sclerae normal Neck: Neck: Yes full ROM and Yes no JVD Resp: Effort & Inspection: normal respiratory effort Auscultation: clear to auscultation bilaterally Cardio: Jugular venous distension: no JVD Rate: regular rate Rhythm: regular rhythm GI: Other: Two very small incision and drainage sites are noted at the intergluteal cleft with packing in place, small amount of purulent discharge noted, no surrounding erythema, no necrotic skin. Packing was removed and no undrained collections are noted. Sterile ABD pad applied. Findings consistent with infected pilonidal cyst. Inspection: No distended and Yes obesity Palpation (GI): Soft to palpation, nontender and no guarding Skin: General skin exam: no rashes or lesions noted Rashes: no rashes Neuro: General: patient oriented x3 Cognition (Neuro): normal cognition Extrem: General: Yes full ROM and Yes no clubbing, cyanosis or edema Results Labs Result diagrams: 07/09/20 06:52 07/09/20 06:52 Labs: Abnormal lab results 07/08/20 07/08/20 07/08/20 Range/Units 20:58 20:58 20:58 RBC (4.60-5.80) X10*6/uL Hgb (14.0-18.0) g/dl Hct 41.6 L (42-52) % Immature Gran % (Auto) 0.7 H (0.0-0.4) % Neut % (Auto) 77.9 H (45-73) % Lymph % (Auto) 11.8 L (20-40) % Lymph # (Auto) 1.1 L (1.2-4.9) X10*3/uL Abs Immat Gran (auto) 0.06 H (0.00-0.03) X10*3/uL PT 14.2 H (10.8-13.0) SEC INR 1.2 H (0.9-1.1) Sodium (135-145) mmol/L Carbon Dioxide (22-29) mmol/L BUN (9-16) mg/dL POC Glucose (60-115) mg/dL Random Glucose (60-115) mg/dL Total Bilirubin 1.1 H (0.0-1.0) mg/dL ALT 44 H (0-40) U/L 10/10/20 10/10/20 10/11/20 Range/Units 20:58 23:06 06:52 RBC 4.32 L (4.60-5.80) X10*6/uL Hgb 13.2 L (14.0-18.0) g/dl Hct 37.2 L (42-52) % Immature Gran % (Auto) 0.6 H (0.0-0.4) % Neut % (Auto) 75.8 H (45-73) % Lymph % (Auto) 12.6 L (20-40) % Lymph # (Auto) 0.8 L (1.2-4.9) X10*3/uL Abs Immat Gran (auto) 0.04 H (0.00-0.03) X10*3/uL PT (10.8-13.0) SEC INR (0.9-1.1) Sodium 132 L (135-145) mmol/L Carbon Dioxide 21 L (22-29) mmol/L BUN 8 L (9-16) mg/dL POC Glucose 329 H (60-115) mg/dL Random Glucose 410 H* (60-115) mg/dL Total Bilirubin (0.0-1.0) mg/dL ALT (0-40) U/L 07/09/20 07/09/20 Range/Units 06:52 07:23 RBC (4.60-5.80) X10*6/uL Hgb (14.0-18.0) g/dl Hct (42-52) % Immature Gran % (Auto) (0.0-0.4) % Neut % (Auto) (45-73) % Lymph % (Auto) (20-40) % Lymph # (Auto) (1.2-4.9) X10*3/uL Abs Immat Gran (auto) (0.00-0.03) X10*3/uL PT (10.8-13.0) SEC INR (0.9-1.1) Sodium (135-145) mmol/L Carbon Dioxide (22-29) mmol/L BUN 6 L (9-16) mg/dL POC Glucose 255 H (60-115) mg/dL Random Glucose 262 H D (60-115) mg/dL Total Bilirubin (0.0-1.0) mg/dL ALT (0-40) U/L Short CBC 07/08/20 07/09/20 Range/Units 20:58 06:52 WBC 9.0 6.2 (4.8-10.8) X10*3/uL Hgb 14.8 13.2 L (14.0-18.0) g/dl Hct 41.6 L 37.2 L (42-52) % Plt Count 215 168 (160-400) X10*3/uL BMP 07/08/20 07/09/20 20:58 06:52 Sodium 132 L 137 Potassium 3.3 3.6 Chloride 99 105 Carbon Dioxide 21 L 22 BUN 8 L 6 L Creatinine 1.06 0.80 Calcium 8.7 Liver Function 07/08/20 Range/Units 20:58 Total Bilirubin 1.1 H (0.0-1.0) mg/dL Direct Bilirubin 0.4 (0.0-0.5) mg/dL AST 33 (5-37) U/L ALT 44 H (0-40) U/L Alkaline Phosphatase 76 (39-117) U/L Albumin 4.2 (3.5-5.0) g/dL All other labs normal. Assessment and Plan (1) Infected pilonidal cyst: Status: Acute The patient presents with infected pilonidal cyst and is 2 days status post incision and drainage. Examination today reveals adequate incision and drainage with no undrained collections and no evidence of necrotic skin to indicate a necrotizing infection. Laboratories are normal however the glucose level is markedly elevated. Packing was removed today and Sitz baths will be started. He should continue Sitz baths once discharged as well. CT of the abdomen and pelvis revealed subcutaneous air in the subcutaneous tissue at the intergluteal cleft which corresponds to the area of incision and drainage. This is to be expected following incision and drainage as well as packing placement. No further surgical intervention is required at this time. He is welcome to follow up in my office upon discharge approximately 1 week for wound examination.
[2020-07-09 08:57] LABS: Calcium 7.7 mg/dL (8.4-10.2)
[2020-07-09 11:46] LABS: Glucose, Whole Blood 252 mg/dL (60-115)
[2020-07-09] MEDS: Acetaminophen 325 MG TABLET 650 MG PO (12:12)
--- NOTE | 2020-07-09 15:17 | P.PNIM_ITS ---
Subjective Subjective Date of Service: 07/09/20 Interval History: the patient was seen and evaluated this morning Laying in bed, feels comfortable Denies any fever, chills or shortness of breath reporting pain at the surgical site No reported other overnight events. Review of Systems Review of Systems: Yes all other systems are reviewed and are negative Physical Exam Vital Signs: Vital Signs: Vital Signs Temp Pulse Resp BP Pulse Ox 07/09/20 11:00 98 F 07/09/20 10:59 98.7 F 103 H 18 116/58 L 98 07/09/20 07:47 99.1 F 100 18 130/62 99 07/09/20 07:16 99.1 F 99 18 114/66 96 07/09/20 03:34 98.0 F 100 18 125/60 99 07/09/20 02:00 85 16 104/62 99 07/08/20 23:14 98.8 F 07/08/20 22:29 112 H 18 97 07/08/20 21:50 102.6 F H 113 H 18 111/53 L 97 07/08/20 20:36 101.9 F H 138 H 20 98/57 L 96 Body Mass Index 37.1 Constitutional : Alert, oriented, not in distress Neck : Normal inspection, Supple Cardiovascular : RRR, S1 S2, no lower extremity edema Respiratory : Good bilateral air entry, no crackles, wheezes or rhonchi Gastrointestinal: soft, lax, Normal bowel sounds, Non tender Skin : Warm/Dry, No rash Neurological : Alert & oriented x3, No focal deficit Objective Data Current Medications Generic Name Dose Route Start Last Admin Trade Name Freq PRN Reason Stop Dose Admin Acetaminophen 650 mg 07/09/20 03:45 07/09/20 12:12 Acetaminophen 325 Mg Tablet PO 650 mg Q6H PRN Administration Pain, Mild (Pain Scale 1-3) Docusate Sodium 100 mg 07/09/20 03:45 Docusate Sodium 100 Mg Capsule PO DAILY PRN Constipation Ceftriaxone Sodium 1 gm/ 50 mls @ 100 mls/hr 07/09/20 21:00 Sodium Chloride IV Q24H [facility] Insulin Human Lispro 0 unit 07/09/20 07:30 07/09/20 12:09 Insulin Lispro 100 Unit/Ml 3 Ml Vial SUBCUT 6 unit QIDACHS [facility] Administration Protocol Sodium Chloride 3 ml 07/09/20 03:45 07/09/20 08:27 0.9 % Sodium Chloride Flush 3 Ml Syringe IVFLUSH 3 ml QSHIFT [facility] Administration Labs CBC & Chem 7: 07/09/20 06:52 07/09/20 06:52 Assessment and Plan (1) Sepsis: Status: Acute (2) Asthma: Status: Acute (3) Infected pilonidal cyst: Status: Acute (4) Diabetes mellitus type 2 in obese: Status: Acute Assessment and Plan: This is a 25-year-old male with past medical history of diabetes and asthma presents to the hospital with infected pilonidal cyst Status post I&D on 07/07/2020 Sepsis due to Infected Pilonidal cyst underwent I&D yesterday CT showing Subcutaneous collections with foci of gas and surrounding inflammatory changes Continue with ceftriaxone and doxycycline Surgical input appreciated, no need for acute intervention at this point Asthma No exacerbation albuterol as needed hyperglycemia secondary to diabetes Start Lantus 12 units daily SSI diabetic diet DVT ppx Lovenox
--- NOTE | 2020-07-09 15:51 | MHC.CM.PN ---
[employer]MEDIATE [employer] completed with pt who reports he lives at home and is independent with care and mobility pt has no services and no DME pt does not have a PCP but reports knowing how to obtain one pt does not have a HCP and declines to complete one today current DC plan is home with no services pt will arrange his own transportation
[2020-07-09] MEDS: Ibuprofen 400 MG TABLET PO (16:00)
[2020-07-09] MEDS: Insulin Glargine,Hum.rec.anlog 100 UNIT/ML 10 ML VIAL 12 UNIT SUBCUT (16:01)
[2020-07-09 16:06] LABS: Glucose, Whole Blood 191 mg/dL (60-115)
[2020-07-09] MEDS: Doxycycline Hyclate 100 MG in 0.9 % Sodium Chloride 250 ML 250 MG IV (18:37)
[2020-07-09] MEDS: cefTRIAXone sodium 1 GM in 0.9 % Sodium Chloride 50 ML IV (21:20)
[2020-07-09 21:30] LABS: Glucose, Whole Blood 283 mg/dL (60-115)
[2020-07-10] VITALS: BP 111/62; PULSE 80; RESP 18; TEMP 36.2; O2SAT 97
[2020-07-10 04:00] VITALS: BP 110/63; PULSE 85; RESP 18; TEMP 36.7; O2SAT 96
[2020-07-10] MEDS: Doxycycline Hyclate 100 MG in 0.9 % Sodium Chloride 250 ML 250 MG IV (05:51)
[2020-07-10 07:05] VITALS: BP 131/74; PULSE 94; RESP 18; TEMP 36.6; O2SAT 98
[2020-07-10 07:06] VITALS: BP 131/74; PULSE 88; RESP 18; TEMP 36.9; O2SAT 98
[2020-07-10 07:25] LABS: Anion Gap 14 (12-20); Blood Urea Nitrogen 6 mg/dL (9-16); Calcium 8.2 mg/dL (8.4-10.2); Carbon Dioxide 22 mmol/L (22-29); Chloride 104 mmol/L (96-108); Creatinine Clr Calc Pharmacy 184.6; Estimated Glomerular Filt Rate > 60; Glucose Random 235 mg/dL (60-115); Potassium 3.7 mmol/l (3.3-5.1); Sodium 136 mmol/L (135-145)
[2020-07-10 07:38] LABS: Glucose, Whole Blood 224 mg/dL (60-115)
[2020-07-10] MEDS: 0.9 % Sodium Chloride Flush 3 ML SYRINGE IVFLUSH ×2 (08:02)
[2020-07-10] MEDS: Insulin Lispro 100 UNIT/ML 3 ML VIAL SUBCUT ×2 (08:02→12:21)
[2020-07-10] MEDS: Insulin Glargine,Hum.rec.anlog 100 UNIT/ML 10 ML VIAL 12 UNIT SUBCUT (08:03)
[2020-07-10] MEDS: Acetaminophen 325 MG TABLET 650 MG PO (08:07)
--- NOTE | 2020-07-10 08:51 | P.PNGS_ITS ---
Subjective Subjective Patient reports: feels better and pain is less Interval history: Patient feels much improved today with no further pilonidal pain. He feels ready for discharge to home Physical Exam Vital Signs: Vital Signs: Vital Signs Temp Pulse Resp BP Pulse Ox 07/10/20 07:06 98.4 F 88 18 131/74 98 07/10/20 07:05 98 F 94 18 131/74 98 07/10/20 04:00 98.1 F 85 18 110/63 96 07/10/20 00:00 97.2 F 80 18 111/62 97 07/09/20 19:11 98.1 F 79 18 108/48 L 96 07/09/20 16:00 98.1 F 84 18 112/66 96 07/09/20 15:31 98.1 F 89 18 112/66 96 07/09/20 11:00 98 F 07/09/20 10:59 98.7 F 103 H 18 116/58 L 98 Body Mass Index 37.1 Const: General: healthy appearing and no acute distress Nutritional Appearance: well nourished Orientation/consciousness: patient oriented x3 Resp: Effort & Inspection: normal respiratory effort Auscultation: clear to auscultation bilaterally Cardio: Jugular venous distension: no JVD Rate: regular rate Rhythm: regular rhythm GI: Other: Two very small incision and drainage sites are again noted at the intergluteal cleft. a small amount of discharge is noted on the dressings but no surrounding erythema. Wounds are nontender to palpation. Inspection: No distended and Yes obesity Palpation (GI): Soft to palpation, nontender and no guarding Skin: General skin exam: no rashes or lesions noted Rashes: no rashes Neuro: General: patient oriented x3 Progress Note: A&P Assessment and plan (1) Infected pilonidal cyst: Status: Acute Assessment and Plan: The patient presents with infected pilonidal cyst and is 3 days status post incision and drainage. Examination today reveals adequate incision and drainage with no undrained collections and no evidence of necrotic skin to indicate a necrotizing infection. Patient feels much improved today with decreased rectal pain. His wounds continue to drain as expected. He is ready from my standpoint for discharge to home. I would recommend Sitz baths 4 times daily as previously recommended. Fall Risk Details Current Medications: Current Medications Generic Name Dose Route Start Last Admin Trade Name Freq PRN Reason Stop Dose Admin Acetaminophen 650 mg 07/09/20 03:45 07/10/20 08:07 Acetaminophen 325 Mg Tablet PO 650 mg Q6H PRN Administration Pain, Mild (Pain Scale 1-3) Docusate Sodium 100 mg 07/09/20 03:45 Docusate Sodium 100 Mg Capsule PO DAILY PRN Constipation Doxycycline Hyclate 100 mg/ 250 mls @ 250 mls/hr 07/09/20 18:00 07/10/20 06:51 Sodium Chloride IV Infused Q12H [facility] Ceftriaxone Sodium 1 gm/ 50 mls @ 100 mls/hr 07/09/20 21:00 07/09/20 22:25 Sodium Chloride IV Infused Q24H [facility] Ibuprofen 400 mg 07/09/20 15:28 Ibuprofen 400 Mg Tablet PO Q6H PRN Pain and Fever Insulin Glargine 16 unit 07/10/20 09:00 07/10/20 08:10 Insulin Glargine,Hum.Rec.Anlog 100 Unit/Ml 10 Ml Vial SUBCUT Not Given DAILY [facility] Insulin Human Lispro 0 unit 07/09/20 07:30 07/10/20 08:02 Insulin Lispro 100 Unit/Ml 3 Ml Vial SUBCUT 4 unit QIDACHS [facility] Administration Protocol Sodium Chloride 3 ml 07/09/20 03:45 07/10/20 08:02 0.9 % Sodium Chloride Flush 3 Ml Syringe IVFLUSH 3 ml QSHIFT [facility] Administration Time Spent With Patient Time: Total time spent is greater than 50% in coordination of care (as documented) at patient's floor/unit and/or counseling patient: Time with patient: less than 15 minutes
[2020-07-10 12:03] LABS: Glucose, Whole Blood 271 mg/dL (60-115)
--- NOTE | 2020-07-10 16:56 | P.DS_ITS ---
DS: Providers Provider Date of admission: 07/08/20 23:40 Primary care physician: Unknown Physician Consults: 07/09/20 03:45 Consult to Physician Routine Consulting Provider: Enrike Mar Reason for consultation: sepsis s/p infected pilonidal cyst Has provider been notified: Yes DS: Diagnosis Discharge Diagnosis (1) Infected pilonidal cyst: Status: Acute (2) Uncontrolled diabetes mellitus: Status: Acute (3) Sepsis: Status: Acute (4) Asthma: Status: Acute DS: Summary Hospital Course Hospital Course: Admission note HPI this is a 24-year-old male with past medical history of diabetes who presents to the hospital with complaints of fever. Of note patient was seen in the ED yesterday 07/07/2020 for pilonidal cyst status post I&D. He was informed by the ED physician to return to the office if he develops fever. Patient reports that he developed fever as high as 103 this afternoon and decided to come back to the ED. He has significant amount of chills, no abdominal pain nausea or vomiting, no diarrhea constipation, no urinary symptoms, no difficulty moving his bowels, he has pain around the I&D and some drainage with no other complications.On arrival to the ED patient hemodynamically stable with a temperature of 102.6?, heart rate of 113, blood pressure of 111/53, respiratory rate of 18, and 97% on room air labs are significant for normal WBC count, glucose of for 10, otherwise unremarkable. CT abdomen pelvis shows subcutaneous collections with foci of gas and surr ounding inflammatory changes possibly infected pilonidal cyst surgery was consulted and will see patient in a.m. patient will be admitted for sepsis secondary to pilonidal cyst This is a 25-year-old male with past medical history of diabetes and asthma presents to the hospital with infected pilonidal cyst Status post I&D on 07/07/2020 He was admitted for evaluation of Sepsis due to Infected Pilonidal cyst had outpatient I&D prior to admission. CT showing Subcutaneous collections with foci of gas and surrounding inflammatory changes. Treated with ceftriaxone and doxycycline. blood cultures remain negative during his hospital stay. Surgical input appreciated, no need for acute intervention at this point. His symptoms cleared up within the 1st 24 hours with no fever. Patient failed much better and ready to be discharged home. To continue doxycycline and Ceftin next Lyme to follow-up with surgery as outpatient if needed. He was noticed to have uncontrolled diabetes with hyperglycemia. he reports not having a PCP and that is why he did not use any insulin for the last month or so. He was started on home does glargine of 16 units and SSI with diabetic diet. He was prescribed his home on insulin Lantus and SSI. Status at Discharge Functional status at discharge: independent ambulation Overall status at discharge: patient is back to baseline Time Spent with Patient Time attestation: Total time spent providing and/or coordinating discharge services: Time spent: Greater than 30 minutes Physical Exam Vital Signs: Vital Signs: Vital Signs Temp Pulse Resp BP Pulse Ox 07/10/20 07:06 98.4 F 88 18 131/74 98 07/10/20 07:05 98 F 94 18 131/74 98 07/10/20 04:00 98.1 F 85 18 110/63 96 07/10/20 00:00 97.2 F 80 18 111/62 97 07/09/20 19:11 98.1 F 79 18 108/48 L 96 Body Mass Index 37.1 Constitutional : Alert, oriented, not in distress Neck : Normal inspection, Supple Cardiovascular : RRR, S1 S2, no lower extremity edema Respiratory : Good bilateral air entry, no crackles, wheezes or rhonchi Gastrointestinal: soft, lax, Normal bowel sounds, Non tender Skin : Warm/Dry, No rash Neurological : Alert & oriented x3, No focal deficit DS: Data Data Completed and Pending Labs on day of discharge: Labs from last 24 hours 07/10/20 07/10/20 07/10/20 11:59 07:34 05:51 Sodium 136 Potassium 3.7 Chloride 104 Carbon Dioxide 22 Anion Gap 14 BUN 6 L Creatinine 0.71 Estim Creat Clear Calc 184.6 Estimated GFR > 60 POC Glucose 271 H 224 H Random Glucose 235 H Calcium 8.2 L 07/09/20 21:24 Sodium Potassium Chloride Carbon Dioxide Anion Gap BUN Creatinine Estim Creat Clear Calc Estimated GFR POC Glucose 283 H Random Glucose Calcium Preliminary micro results at discharge 07/08/20 21:27 Blood Culture - Preliminary Blood - Venous No growth after 24 hours. 07/08/20 20:58 Blood Culture - Preliminary Blood - Venous No growth after 24 hours. Discharge Plan Discharge Patient Disposition: Home, Self-Care Referrals: Physician,Unknown [Primary Care Provider] - Discharge Medications: New cefuroxime axetil 500 mg tablet 500 mg PO BID Qty: 10 RF: 0 Lantus U-100 Insulin 100 unit/mL Solution 16 unit subcut DAILY Qty: 10 RF: 1 insulin lispro [Humalog U-100 Insulin] 100 unit/mL Solution See Protocol unit subcut QIDACHS Qty: 10 RF: 1 (DME) insulin syringe,safetyneedle 0.3 mL 29 x 1/2 syringe See Rx Instructions .ROUTE .MEDSUPPLY Qty: 500 RF: 0 Continued doxycycline hyclate 100 mg capsule 100 mg PO BID 7 Days Qty: 14 RF: 0 ibuprofen 600 mg tablet 600 mg PO Q6H PRN (Reason: pain) Qty: 20 RF: 0 Discharge Orders: Discharge Order (Routine); Ordered 07/10/20 Ordered By: Julio Dinero Diet: advance to your usual diet Activity on Discharge: As tolerated Discharge Date/Time: 07/10/20 12:51 Visit Report Forms: Patient Portal Discharge page Care Plan Goals: - Health Concerns: - Plan of Treatment: You were admitted to the hospital for evaluation of fever and recently surgical wound. Treated with IV antibiotics with good response. Evaluated by surgery who recommended no further intervention needed. Continue doxycycline and Ceftin as prescribed. Use Tylenol and ibuprofen as needed for pain You will need a tighter sugar control. Continue insulin home dose.
== END 2020-07-10 12:51 | disposition home or self-care (01) | DRG 720 ==
LOC: HO.ED 23:08 → HO.IMC 07-09 01:44
PROVIDERS: Nurse Practitioner Family; Admitting Provider Internal Medicine; Emergency Provider Emergency Medicine Emergency Medical Services; Visit Provider Student in an Organized Health Care Education/Training Program
DX: A41.9 Sepsis, unspecified organism (principal); E11.65 Type 2 diabetes mellitus with hyperglycemia; E11.9 Type 2 diabetes mellitus without complications; E66.9 Obesity, unspecified; L05.91 Pilonidal cyst without abscess; J45.909 Unspecified asthma, uncomplicated; T38.3X6A Underdosing of insulin and oral hypoglycemic [antidiabetic] drugs, initial encounter; Z91.128 Patient's intentional underdosing of medication regimen for other reason; Y92.9 Unspecified place or not applicable
CPT/HCPCS: 36415; 71045; 74176; 80048; 80076; 82947; 83605; 83690; 83735; 84484; 85025; 85610; 87040; 93005; 96361; 96365; 96367; 96375; 99285; 99291; J1885; J2270; J2405; J3370

== ENCOUNTER 2020-09-13 07:50 | Outpatient (REF) | payer OTHER, SELFPAY | END 2020-09-13 07:51 | disposition home or self-care (01) | LOC: HO.LAB 07:50 | PROVIDERS: PCP Nurse Practitioner Family; Visit Provider Internal Medicine | DX: Z20.828 Contact with and (suspected) exposure to other viral communicable diseases (principal) | CPT/HCPCS: C9803; U0003 ==

== ENCOUNTER 2020-10-16 08:12 | Outpatient (REF) | payer OTHER, SELFPAY | END 2020-10-16 08:13 | disposition home or self-care (01) | LOC: HO.LAB 08:12 | PROVIDERS: Visit Provider Internal Medicine | DX: Z20.822 Contact with and (suspected) exposure to COVID-19 (principal) | CPT/HCPCS: 36415; C9803; U0003 ==

== ENCOUNTER 2020-11-03 01:35 | Emergency (ER) | payer OTHER, SELFPAY | END 2020-11-03 03:42 | disposition left against medical advice (07) | PROVIDERS: Emergency Provider Emergency Medicine; PCP Nurse Practitioner Family | DX: N50.819 Testicular pain, unspecified (principal); E11.9 Type 2 diabetes mellitus without complications ==

== ENCOUNTER 2021-02-10 10:35 | Emergency (ER) | payer OTHER, SELFPAY ==
[2021-02-10 10:39] VITALS: BP 132/84; PULSE 82; RESP 18; TEMP 36.6; O2SAT 98; BMI 34.4
--- NOTE | 2021-02-10 10:56 | ED.EYEPROB ---
HPI - Eye Problem General Chief complaint: Eye Problems Stated complaint: EYE RASH Time Seen by Provider: 02/10/21 10:56 Source: patient Mode of arrival: ambulatory Limitations: no limitations History of Present Illness HPI Narrative: 25 y/o male presenting with right eyelid lesions for the last few days. He states he gets these lesions every spring when he itches his eyes with his allergies. He reports being treated for herpes lesions with antiviral medications several times in the past for this issue. 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 He denies vision changes, eye pain, eye redness, or discharge. No FB sensation. No fever or chills. chief complaint: other (eye lid lesion) Onset (ago): day(s) Onset description: gradual Duration: constant Location: right eye Eye Symptoms: burning Place: home Mechanism: none Severity: mild If Pain, Quality: burning and aching Context: recent URI Associated symptoms: none Related Data Patient tetanus UTD: Yes Previous Rx's Medication Instructions Recorded insulin aspart U-100 100 unit/mL See Rx Instructions SUBCUT DAILY 10/05/20 subcutaneous solution #30 ml insulin glargine 100 unit/mL 16.8 unit SUBCUT DAILY #10 ml 11/09/20 subcutaneous solution valacyclovir 500 mg PO BID #6 tab 02/10/21 Allergies Allergy/AdvReac Type Severity Reaction Status Date / Time apple [APPLE] Allergy Severe HIVES Verified 07/07/20 18:01 nickel [NICKEL] Allergy Unknown UNKNOWN Verified 07/07/20 18:01 Review of Systems Review of Systems: Constitutional: No Fever, No Chills ENT/Mouth: No sore throat, No Rhinorrhea, No Swallowing Difficulty Eyes: No Eye Pain, + Swelling, No Redness Gastrointestinal: No Nausea, No Vomiting Musculoskeletal: No joint pain, No Myalgias Skin: + Skin Lesions, No rash Neuro:No Headache Psych: No Anxiety/Panic, No Depression Heme/Lymph: No Bruising, No Lymphadenopathy PMFSH Past Medical History Medical History (Updated 02/10/21 @ 11:19 by SUSSY Escamilla) Asthma Chronic recurrent pilonidal cyst Diabetes mellitus type 2 in obese Testicular torsion Surgical History History of incision and drainage Social History Social History Household Members: Family Housing: Apartment Alcohol intake: never Smoking Status: Never smoker Second Hand Smoke Exposure: No Advance Directives: Yes Advance Directives Information Provided: No Advance Directives on File: No service: No Current occupational status: employed Physical Exam Vital Signs: Vital Signs: Last Vital Signs Temp 97.8 F 02/10/21 10:39 Pulse 82 02/10/21 10:39 Resp 18 02/10/21 10:39 BP 132/84 02/10/21 10:39 Pulse Ox 98 02/10/21 10:39 Body Mass Index 34.4 Appearance: Alert. Oriented X3. No acute distress. HEENT: small erythematous slightly tender lesion on right upper eyelid, medially. no blistering or pustule. EOMI, PERRLA, no sceral or conjuctival injection. VA normal. eye is nontender CVS: Normal heart rate and rhythm. Pulses normal. Respiratory: No respiratory distress. Skin: Skin warm and dry. Normal skin color. Normal skin turgor. No rashes. Declining genitalia exam. Extremities: atraumatic, no edema. Neuro: Oriented X 3. No motor deficit. No sensory deficit. Course Course Course Narrative: 25 yo male presenting with right eyelid lesion, seasonal allergies and reports of HSV 1 flare. No evidence of keratitis or iritis on exam. He is requesting antivirals for HSV - will prescribe. He has an appointment with his PCP coming up. Encouraged to come back to the ER if his eye symptoms worsen or progress. Stable for discharge. Discharge Plan Discharge Clinical Impression: Herpes Patient Disposition: Home, Self-Care Additional Instructions: Take the prescribed antiviral medcation for 3 days as prescribed. Follow up with your doctor. If you develop eye pain, vision changes or any other concerning symptom come back to the ER for further evluation. Prescriptions: New valacyclovir 500 mg tablet 500 mg PO BID Qty: 6 RF: 0 No Action insulin aspart U-100 [Novolog U-100 Insulin aspart] 100 unit/mL solution See Rx Instructions subcut DAILY Qty: 30 RF: 1 insulin glargine [Lantus U-100 Insulin] 100 unit/mL solution 16.8 unit subcut DAILY Qty: 10 RF: 1 Interventions: ED Discharge Assessment Last Done: 02/10/21 11:24 Discharge Date/Time: 02/10/21 11:45
== END 2021-02-10 11:45 | disposition home or self-care (01) ==
PROVIDERS: Emergency Provider Emergency Medicine Emergency Medical Services; PCP Nurse Practitioner Family
DX: B00.9 Herpesviral infection, unspecified (principal); E11.9 Type 2 diabetes mellitus without complications; Z79.4 Long term (current) use of insulin
CPT/HCPCS: 99283

== ENCOUNTER 2021-04-18 12:13 | Emergency (ER) | payer OTHER, SELFPAY ==
[2021-04-18 12:46] VITALS: BP 131/76; PULSE 76; RESP 16; TEMP 36.9; O2SAT 98; BMI 32.2
[2021-04-18 14:00] LABS: Glucose Urine UA >=1000 MG/DL (NEG); Leukocyte Esterase Urine NEG (NEG); Nitrite Urine NEG (NEG); Urine Blood NEG (NEG); Urine Ketones NEG (NEG); Urine Protein 1+ MG/DL (NEG-TRACE)
[2021-04-18 14:03] LABS: Appearance Urine HAZY; Color Urine YELLOW
--- NOTE | 2021-04-18 14:06 | ED_ITS ---
HPI - Male Genitourinary General Chief complaint: Urogenital-Male Stated complaint: STD Time Seen by Provider: 04/18/21 14:06 Related Data Previous Rx's Medication Instructions Recorded insulin aspart U-100 100 unit/mL See Rx Instructions SUBCUT DAILY 10/05/20 subcutaneous solution #30 ml insulin glargine 100 unit/mL 16.8 unit SUBCUT DAILY #10 ml 11/09/20 subcutaneous solution valacyclovir 500 mg PO BID #6 tab 02/10/21 valacyclovir 1,000 mg PO BID #14 tab 04/18/21 Allergies Allergy/AdvReac Type Severity Reaction Status Date / Time apple [APPLE] Allergy Severe HIVES Verified 04/18/21 12:52 nickel [NICKEL] Allergy Unknown UNKNOWN Verified 04/18/21 12:52 Review of Systems Review of Systems: Constitutional : No Weight loss, No Fever, No Chills, No Night Sweats, No Fatigue, No Malaise ENT/Mouth : No Hearing loss, No Ear Pain, No Nasal Congestion, No Sinus Pain, No Hoarseness, No sore throat, No Rhinorrhea, No Swallowing Difficulty Eyes: No Eye Pain, No Swelling, No Redness, No Foreign Body, No Discharge, No Vision Changes Cardiovascular : No Chest Pain, No SOB, No Dyspnea on Exertion, No Orthopnea, No Edema, No Palpitations Respiratory : No Cough, No Sputum, No Wheezing, No Smoke Exposure, No Dyspnea Gastrointestinal : No Nausea, No Vomiting, No Diarrhea, No Constipation, No abdominal Pain, No Hematochezia, No Melena Genitourinary : no irregular bleeding, No Dysuria, No Urinary Frequency, No Hematuria, No Urinary Incontinence, No Urgency, No Flank Pain, No Urinary Flow Changes, No Hesitancy Musculoskeletal : No joint pain, No Myalgias, No Joint Swelling, lower back pain Skin : No Skin Lesions, No rash Neuro : No Weakness, No Numbness, No Paresthesias, No Loss of Consciousness, No Dizziness, No Headache Psych : No Anxiety/Panic, No Depression, No SI/HI/AH/VH, No Social Issues, Heme/Lymph: No Bruising, No Bleeding,No Lymphadenopathy Endocrine : No Polyuria, No Polydipsia, No Temperature Intolerance Yes all other systems are reviewed and are negative PMFSH Past Medical History Medical History (Updated 04/18/21 @ 16:13 by JOHN Lofton-BC) Asthma Chronic recurrent pilonidal cyst Diabetes mellitus type 2 in obese Testicular torsion Surgical History History of incision and drainage Social History Social History Household Members: Family Housing: Apartment Do you presently have visiting nurse or other home services: No Alcohol intake: never Second Hand Smoke Exposure: No Advance Directives: No Advance Directives Information Provided: No service: No Current occupational status: employed Physical Exam Vital Signs: Vital Signs: Last Vital Signs Temp 98.3 F 04/18/21 15:34 Pulse 70 04/18/21 15:34 Resp 14 04/18/21 15:34 BP 135/73 04/18/21 15:34 Pulse Ox 97 04/18/21 15:34 Body Mass Index 32.2 Const: General: healthy appearing, no acute distress and well developed Nutritional Appearance: well nourished Orientation/consciousness: patient oriented x3 Neck: Neck: Yes normal visual inspection, Yes full ROM and Yes trachea midline Thyroid: Thyroid normal Resp: Auscultation: clear to auscultation bilaterally Cardio: Rate: regular rate Rhythm: regular rhythm GI: Inspection: Yes normal to inspection and No distended Palpation (GI): No hepatosplenomegaly present Auscultation: normal bowel sounds Back/Spine/Pelvis: Cervical Spine: No cervical muscular tenderness Thoracic/Lumbar Spine: thoracic and lumbar spine normal to inspection and other ( lower paraspinal muscle tenderness (more on the right than left)) Skin: General skin exam: elasticity normal, turgor normal and dry skin Neuro: General: patient oriented x3 Course Course Course Narrative: 25-year-old male with past medical history of diabetes and recurrent pilonidal cyst is here today for complaining of penile pain. Patient reports that he has had that for few days. Rest time he had sexual encounter that was unprotected was in November. Patient reports that he is unable to retract the foreskin. Denies any discharge. Vesicular like rash. Patient reports that it is painful and denies any pruritus. will order urine for chlamydia and gonorrhea. Will send swab for herpes. Will put him on Valtrex. Patient was instructed to abstain from sexual activity. To speak to his partners about testing. We will give him referral to [facility]. He verbalizes understanding and is agreeable to plan of care. He was given the opportunity to ask questions and all questions answered. MDM - Male Genitourinary Lab Data Labs: Lab Results 04/18/21 04/18/21 Range/Units 13:23 13:23 Urine Color YELLOW Urine Appearance HAZY Urine pH 6.0 (5.0-8.0) Ur Specific [place] 1.020 (1.005-1.025) Urine Protein 1+ H (NEG-TRACE) MG/DL Urine Glucose (UA) >=1000 H (NEG) MG/DL Urine Ketones NEG (NEG) MG/DL Urine Blood NEG (NEG) Urine Nitrite NEG (NEG) Ur Leukocyte Esterase NEG (NEG) Urine RBC 0 (0) /HPF Urine WBC 0-2 (0-4) /HPF Ur Squamous Epith Cells 1+ /LPF Urine Bacteria TRACE /LPF Chlam trachomat DNA PCR NOT DETECTED (Not Detect.) N.gonorrhoeae DNA (PCR) NOT DETECTED (Not Detect.) Discharge Plan Discharge Clinical Impression: Genital herpes simplex Qualifiers: Herpes simplex infection site: penis Qualified Code(s): A60.01 - Herpesviral infection of penis Patient Disposition: Home, Self-Care Instructions: Genital Herpes Simplex (ED) Additional Instructions: you were seen here today for sore spots on year genitals. Year gonorrhea and chlamydia test came back negative. You were treated for herpes and you will be sent home with script. Please finish all your antibiotics. Please follow-up with your primary care provider in 2-3 days. Please make sure that you have no sexual activity and discuss this with your sexual partner. You may return to emergency department if your symptoms will get worse or if you will experience any additional concerning symptoms. Prescriptions: New valacyclovir 1 gram tablet 1,000 mg PO BID Qty: 14 RF: 0 No Action insulin aspart U-100 [Novolog U-100 Insulin aspart] 100 unit/mL solution See Rx Instructions subcut DAILY Qty: 30 RF: 1 insulin glargine [Lantus U-100 Insulin] 100 unit/mL solution 16.8 unit subcut DAILY Qty: 10 RF: 1 valacyclovir 500 mg tablet 500 mg PO BID Qty: 6 RF: 0 Interventions: ED Discharge Assessment Last Done: 04/18/21 16:43 Discharge Date/Time: 04/18/21 16:43
[2021-04-18 14:37] LABS: Bacteria Urine TRACE /LPF; RBC Urine 0 /HPF (0); Squamous Epithelial Cell Urine 1+ /LPF; WBC Urine 0-2 /HPF (0-4)
[2021-04-18 15:34] VITALS: BP 135/73; PULSE 70; RESP 14; TEMP 36.8; O2SAT 97
[2021-04-18 15:50] LABS: CT PCR NOT DETECTED (Not Detect.); NG PCR NOT DETECTED (Not Detect.)
== END 2021-04-18 16:43 | disposition home or self-care (01) ==
PROVIDERS: Nurse Practitioner Family; Emergency Provider Emergency Medicine; PCP Nurse Practitioner Family
DX: A60.01 Herpesviral infection of penis (principal); E11.9 Type 2 diabetes mellitus without complications; Z79.4 Long term (current) use of insulin
CPT/HCPCS: 81001; 81003; 87255; 87491; 87591; 99283

== ENCOUNTER 2021-07-27 14:16 | Emergency (ER) | payer SELFPAY | END 2021-07-27 17:09 | disposition left against medical advice (07) | LOC: HO.ED 17:24 | PROVIDERS: Emergency Provider Emergency Medicine; PCP Nurse Practitioner Family | DX: Z76.0 Encounter for issue of repeat prescription (principal) ==

== ENCOUNTER 2021-09-19 13:01 | Emergency (ER) | payer SELFPAY ==
[2021-09-19 13:21] VITALS: BP 136/89; PULSE 79; RESP 18; TEMP 36.9; O2SAT 97; BMI 33.6
== END 2021-09-19 17:41 | disposition left against medical advice (07) ==
LOC: HO.ED 16:55
PROVIDERS: Emergency Provider Emergency Medicine
DX: Z20.2 Contact with and (suspected) exposure to infections with a predominantly sexual mode of transmission (principal)
CPT/HCPCS: 99281; 99282

== ENCOUNTER 2021-12-17 12:57 | Emergency (ER) | payer SELFPAY | END 2021-12-17 15:40 | disposition left against medical advice (07) | LOC: HO.ED 15:39 | PROVIDERS: Emergency Provider Emergency Medicine | DX: R21 Rash and other nonspecific skin eruption (principal) ==

== ENCOUNTER 2023-02-16 10:26 | Emergency (ER) | payer MEDICAID, SELFPAY ==
[2023-02-16 10:28] VITALS: BP 140/68; PULSE 92; RESP 18; TEMP 37; O2SAT 97; BMI 32.9
--- NOTE | 2023-02-16 11:08 | ED.GENADULT ---
HPI - General Adult General Chief complaint: Eye Problems Stated complaint: Swollen R eye Time Seen by Provider: 02/16/23 11:08 Source: patient Limitations: no limitations History of Present Illness HPI narrative: 27-year-old male who presents to the ER with concerns for right eye discharge and skin lesions around his right eye. Patient has had a longstanding history of HSV 1 with recurrent issues to his right eye. Patient seen automotive parts clerk in the past. Patient denies any fever chills. Patient states he recently lost his insurance so was unable to see a PCP to get his prescription for Valtrex. Patient states vision is intact no other complaints at this time. Symptoms are [id number]. Related Data Previous Rx's Medication Instructions Recorded insulin aspart U-100 100 unit/mL See Rx Instructions subcut DAILY 10/05/20 subcutaneous solution (Novolog #30 mL U-100 Insulin aspart) insulin glargine 100 unit/mL 16.8 unit (0.168 mL) subcut DAILY 11/09/20 subcutaneous solution (Lantus #10 mL U-100 Insulin) valacyclovir 500 mg tablet 500 mg PO BID #6 tabs 02/10/21 valacyclovir 1 gram tablet 1,000 mg PO BID #14 tabs 04/18/21 valacyclovir 1 gram tablet 1,000 mg PO BID 10 days #20 tabs 02/16/23 (Valtrex) Allergies Allergy/AdvReac Type Severity Reaction Status Date / Time apple [APPLE] Allergy Severe HIVES Verified 02/16/23 10:28 nickel [NICKEL] Allergy Unknown UNKNOWN Verified 02/16/23 10:28 Review of Systems Review of Systems: General: No fever, no chills Ophthalmology: Right eye discharge vision intact ENT: No sore throat, no ear pain Cardiovascular: No chest pain, no peripheral edema, no shortness of breath Respiratory: No dyspnea, no sputum production, no cough Muscle skeletal: No malaise, no back pain, no neck pain, no extremity pain GI: No abdominal pain: no nausea vomiting, no diarrhea Skin: No rash, skin lesions noted around the right orbit PMFSH Past Medical History Attestation statement: The following information was validated with the patient. Medical History Asthma Chronic recurrent pilonidal cyst Diabetes mellitus type 2 in obese HSV (herpes simplex virus) infection Testicular torsion Surgical History History of incision and drainage Social History Social History Household Members: Family Housing: Apartment Do you presently have visiting nurse or other home services: No Alcohol intake: never Second Hand Smoke Exposure: No Advance Directives: No Advance Directives Information Provided: Yes service: No Current occupational status: employed Physical Exam ED Vital Signs: Vital Signs - 24 hr 02/16/23 10:28 Temperature 98.6 F Pulse Rate 92 Respiratory Rate 18 Blood Pressure 140/68 H Pulse Oximetry 97 Oxygen Delivery Method Room Air BMI result Body Mass Index 32.9 General appearance: Awake, alert, cooperative, in no acute distress Skin: Warm, dry, no rash Eyes: PERRL, EOMI, right orbit small skin lesions noted. ENT: Oropharynx normal, uvula midline Neck: Soft supple full range of motion Extremities: No deformity, nontender, no peripheral edema noted Neuro: Alert oriented x3, no focal deficit Psych: Normal affect Course Course Course Narrative: HSV 1 right orbit Corneal abrasion Zoster ophthalmicus 27-year-old male with longstanding history of HSV 1 to his right eye patient has been on Valtrex in the past and also seen Ophthalmology. Visual acuity right eye 20/25 corrected left eye 20/20 corrected 1000 mL of Valtrex p.o. Proparacaine and a sensation of the right eye floor seen positive punctated lesions are noted. Case discussed with Dr. Chavez will place patient on Valtrex follow-up with Ophthalmology Medications Administered Discontinued Medications Generic Name Dose Route Start Last Admin Trade Name Freq PRN Reason Stop Dose Admin Tetracaine HCl 1 drop 02/16/23 11:13 02/16/23 11:16 Tetracaine Hcl/Pf 0.5% Oph Marce 4 Ml Drops EYE-RIGHT 02/16/23 11:14 1 drop ONCE ONE Administration Discharge Plan Discharge Clinical Impression: Herpes simplex dermatitis with ophthalmic complication Patient Disposition: Home, Self-Care Instructions: Oral Herpes Simplex Virus Infections (ED) Prescriptions: New valacyclovir [Valtrex] 1 gram tablet 1,000 mg PO BID 10 Days Qty: 20 1RF No Action insulin aspart U-100 [Novolog U-100 Insulin aspart] 100 unit/mL solution See Rx Instructions subcut DAILY Qty: 30 1RF Rx Instructions: Sliding Scale subcut daily; insulin glargine [Lantus U-100 Insulin] 100 unit/mL solution 16.8 unit subcut DAILY Qty: 10 1RF valacyclovir 500 mg tablet 500 mg PO BID Qty: 6 0RF valacyclovir 1 gram tablet 1,000 mg PO BID Qty: 14 0RF Referrals: Fazal Wynn [Physician] - (Herpes simplex 1 ophthalmicus right eye)
[2023-02-16] MEDS: Tetracaine HCl/PF 0.5% Oph Sol 4 ML DROPS 1 DROP EYE-RIGHT (11:16)
[2023-02-16] MEDS: valACYclovir HCL 1,000 MG TABLET 1000 MG PO (11:53)
== END 2023-02-16 11:57 | disposition home or self-care (01) ==
PROVIDERS: Emergency Provider Emergency Medicine Emergency Medical Services
DX: B00.50 Herpesviral ocular disease, unspecified (principal)
CPT/HCPCS: 99282

== ENCOUNTER 2024-04-22 09:14 | Emergency (ER) | payer MEDICAID, SELFPAY ==
[2024-04-22 09:20] VITALS: BP 131/75; PULSE 97; RESP 16; TEMP 37.1; O2SAT 96; BMI 34.5
--- NOTE | 2024-04-22 09:35 | PC.NURSE ---
pt a&ox3, c/o raised rash to thigh area, pt states he used desitin on the area to help with the itch as he states he doesnt like using medication such as benadryl. denies pain, states area is just itchy, pt awaiting provider.
--- NOTE | 2024-04-22 10:05 | ED_ITS ---
HPI - Skin/Abscess/Foreign Bdy General Chief complaint: Skin/Abscess/Foreign Body Stated complaint: Rash Time Seen by Provider: 04/22/24 09:30 Source: patient Mode of arrival: ambulatory Limitations: no limitations History of Present Illness ED Provider: Justin PEARSON HPI narrative: This is a 28-year-old male hx hsv1, diabetes, genital herpes presenting with rash to bilateral inner thighs ongoing for the past few days. It started after very hot day, he reports rashes uncomfortable however not particularly painful. He reports initially was read however now it is drying up. He denies any new exposures to laundry detergents, soap, lotions, foods. He has tried putting Desitin cream on it with little to no relief. Denies fevers, chills, nausea, vomiting, chest pain, shortness of breath, headache, vision changes, dizziness and weakness. Related Data Previous Rx's ?Medication ?Instructions ?Recorded insulin aspart U-100 100 unit/mL See Rx Instructions subcut DAILY 10/05/20 subcutaneous solution (Novolog #30 mL U-100 Insulin aspart) insulin glargine 100 unit/mL 16.8 unit (0.168 mL) subcut DAILY 11/09/20 subcutaneous solution (Lantus #10 mL U-100 Insulin) valacyclovir 500 mg tablet 500 mg PO BID #6 tabs 02/10/21 valacyclovir 1 gram tablet 1,000 mg PO BID #14 tabs 04/18/21 valacyclovir 1 gram tablet 1,000 mg PO BID 10 days #20 tabs 02/16/23 (Valtrex) valacyclovir 1 gram tablet 1,000 mg PO BID 10 days #20 tabs 04/22/24 (Valtrex) Allergies Allergy/AdvReac Type Severity Reaction Status Date / Time apple [APPLE] Allergy Severe HIVES Verified 04/22/24 09:21 nickel [NICKEL] Allergy Unknown UNKNOWN Verified 04/22/24 09:21 Review of Systems Review of Systems: Yes all other systems are reviewed and are negative PMFSH Past Medical History Attestation statement: The following information was validated with the patient. Source: old records reviewed and nursing notes reviewed Medical History Asthma Chronic recurrent pilonidal cyst Diabetes mellitus type 2 in obese HSV (herpes simplex virus) infection Testicular torsion Surgical History History of incision and drainage Social History Social History Household Members: Family Housing: Apartment Do you presently have visiting nurse or other home services: No Alcohol intake: never Second Hand Smoke Exposure: No Do you have a plan to hurt others: No Plan service: No Current occupational status: employed Physical Exam Vital Signs: Vital Signs: Last Vital Signs Temp 98.7 F 04/22/24 09:20 Pulse 97 04/22/24 09:20 Resp 16 04/22/24 09:20 BP 131/75 04/22/24 09:20 Pulse Ox 96 04/22/24 09:20 O2 Del Method Room Air 04/22/24 09:20 BMI result Body Mass Index 34.5 vss Appearance: Alert.? Oriented X3.? No acute distress.? Head: Normocephalic, atraumatic, no step-offs or deformities Eyes: Pupils equal, round and reactive to light.? Neck: Normal inspection.? Neck supple.? CVS: Normal heart rate and rhythm.? Pulses normal.? Respiratory: No respiratory distress.? Breath sounds normal.? Skin: Skin warm and dry.? Normal skin color.? Normal skin turgor.? Extremities: No lower extremity edema.? No calf ttp. 5/5 strength to bilateral upper and lower extremities + small pustules around hair follicles and bilateral groin region, no overlying erythema, warmth, abscess. No fluctuance. Neuro: Oriented X 3.? No motor deficit.? No sensory deficit. CN 2-12 intact Medical Decision Making Medical Decision Making [facility] Narrative: 28-year-old male presents with rash to bilateral groin region. Physical exam + small pustules around hair follicles and bilateral groin region, no overlying erythema, warmth, abscess. No fluctuance. History and physical exam concerning for folliculitis with pustules. Less likely genital herpes. Unlikely cellulitis, abscess, Dilan gangrene. Other differentials include hidradenitis suppurativa and chafing. Plan will discharge patient home with Valtrex due to his past medical history of herpes. I did have my colleague evaluate patient who agrees with diagnosis and treatment plan Differential Diagnosis Differential Diagnoses: The differential diagnosis associated with the presentation includes History and physical exam concerning for folliculitis with pustules. Less likely genital herpes. Unlikely cellulitis, abscess, Dilan gangrene. Other differentials include hidradenitis suppurativa and chafing. Admission/Observation Consideration of admission/observation: Escalation of care including admission/observation considered No indication Radiology Impression Discussion of test interpretation with radiology: I have reviewed the radiologist's reading. Discharge Plan Discharge Clinical Impression: Folliculitis, Genital herpes Patient Disposition: Home, Self-Care Instructions: Folliculitis (ED) Additional Instructions: Take your medications as prescribed. If you were prescribed antibiotics today, it is important that you take your medication to their entirety, do not skip any doses, do not finish them early. Follow-up with your primary care provider this week. Return to the emergency department with new or worsening symptoms. Such as fevers, chills, chest pain, shortness of breath, nausea, vomiting, dizziness, headache, vision changes, lethargy In case of emergency call 911 Apply warm compresses to the affected area. Keep area clean and dry. Return if you experience redness, swelling, discharge, worsening pain, fevers, chills Prescriptions: New valacyclovir [Valtrex] 1 gram tablet 1,000 mg PO BID 10 Days Qty: 20 0RF No Action insulin aspart U-100 [Novolog U-100 Insulin aspart] 100 unit/mL solution See Rx Instructions subcut DAILY Qty: 30 1RF Rx Instructions: Sliding Scale subcut daily; insulin glargine [Lantus U-100 Insulin] 100 unit/mL solution 16.8 unit subcut DAILY Qty: 10 1RF valacyclovir 500 mg tablet 500 mg PO BID Qty: 6 0RF valacyclovir 1 gram tablet 1,000 mg PO BID Qty: 14 0RF valacyclovir [Valtrex] 1 gram tablet 1,000 mg PO BID 10 Days Qty: 20 1RF Referrals: Physician,None [Primary Care Provider] - 2 days Print Language: Kazakh
[2024-04-22 10:21] VITALS: BP 131/75; PULSE 97; RESP 16; TEMP 37.1
== END 2024-04-22 10:22 | disposition home or self-care (01) ==
LOC: HO.ED 10:14
PROVIDERS: Emergency Provider Emergency Medicine
DX: L73.8 Other specified follicular disorders (principal); A60.00 Herpesviral infection of urogenital system, unspecified; Z79.899 Other long term (current) drug therapy
CPT/HCPCS: 99282; 99283

== ENCOUNTER 2024-06-18 13:13 | Emergency (ER) | payer OTHER, SELFPAY ==
[2024-06-18 13:30] VITALS: BP 111/62; PULSE 74; RESP 16; TEMP 37; O2SAT 97; BMI 33.7
--- NOTE | 2024-06-18 13:32 | ED_ITS ---
HPI - Skin/Abscess/Foreign Bdy General Chief complaint: Skin/Abscess/Foreign Body Stated complaint: Cyst under armpit Time Seen by Provider: 06/18/24 15:30 Source: patient Mode of arrival: ambulatory Limitations: no limitations History of Present Illness ED Provider: Sharlene King PA-C HPI narrative: Patient is a 28 year old assigned male at with a history of DM presenting to the emergency department today with a left armpit abscess. Patient states that over the last week he noticed a lump in his left arm pit that is continually getting larger. Patient denies any dizziness, lightheadedness, abdominal pain, nausea, vomiting, fever, chills, blurry vision, double vision, loss of vision, chest pain, difficulty breathing, shortness of breath, back pain, night sweats, pain with urination, increased urinary frequency, increased urinary urgency, blood in his urine or stool, syncope or a near syncopal episode, recent trauma or falls, bowel incontinence, bladder incontinence, or any other complaints at this time. Onset (ago): week(s) (1) Relieving factors: none Exacerbating factors: none Context: none Associated symptoms: denies other symptoms Treatments prior to arrival: none Related Data Previous Rx's ?Medication ?Instructions ?Recorded insulin aspart U-100 100 unit/mL See Rx Instructions subcut DAILY 10/05/20 subcutaneous solution (Novolog #30 mL U-100 Insulin aspart) insulin glargine 100 unit/mL 16.8 unit (0.168 mL) subcut DAILY 11/09/20 subcutaneous solution (Lantus #10 mL U-100 Insulin) valacyclovir 500 mg tablet 500 mg PO BID #6 tabs 02/10/21 valacyclovir 1 gram tablet 1,000 mg PO BID #14 tabs 04/18/21 valacyclovir 1 gram tablet 1,000 mg PO BID 10 days #20 tabs 02/16/23 (Valtrex) valacyclovir 1 gram tablet 1,000 mg PO BID 10 days #20 tabs 04/22/24 (Valtrex) cephalexin 500 mg capsule 500 mg PO Q6H 7 days #28 caps 06/18/24 doxycycline hyclate 100 mg tablet 100 mg PO BID 7 days #14 tabs 06/18/24 Allergies Allergy/AdvReac Type Severity Reaction Status Date / Time apple [APPLE] Allergy Severe HIVES Verified 06/18/24 13:34 nickel [NICKEL] Allergy Unknown UNKNOWN Verified 06/18/24 13:34 Review of Systems 2 Constitutional: Constitutional: Reports no additional constitutional complaints, Denies chills, Denies fever(s) and Denies night sweats Eyes: Eyes: Reports no additional eye complaints, Denies blurry vision, Denies change in vision, Denies diplopia, Denies eye discharge, Denies loss of vision and Denies eye pain ENT: Denies dizziness Cardiovascular: Cardiovascular: Reports no additional cardiovascular complaints, Denies chest pain, Denies lightheadedness, Denies Loss of Consciousness and Denies dyspnea Respiratory: Respiratory: Reports no additional respiratory complaints and Denies dyspnea Gastrointestinal: Gastrointestinal: Reports no additional gastrointestinal complaints, Denies abdominal pain, Denies melena, Denies hematochezia, Denies change in bowel habits and Denies change in stool character Genitourinary: Genitourinary: Reports no additional male genitourinary complaints, Denies hematuria, Denies oliguria, Denies difficulty urinating, Denies dysuria, Denies urinary frequency, Denies urinary hesitancy, Denies urinary incontinence and Denies urinary urgency Musculoskeletal: Musculoskeletal: Reports no additional musculoskeletal complaints, Denies numbness and Denies tingling Integumentary/Breasts: Comments: growth in left armpit Neurologic: Denies dizziness, Denies loss of vision, Denies numbness and Denies tingling Psychiatric: Psychiatric: Reports no additional psychiatric complaints Endocrine: Endocrine: Reports no additional endocrine complaints Hematologic/Lymphatic: Hematologic/Lymphatic: Reports no additional hematologic/lymphatic complaints Allergic/Immunologic: Allergic/Immunologic: Reports no additional allergic/immunologic complaints [facility] Past Medical History Attestation statement: The following information was validated with the patient. Source: old records reviewed and nursing notes reviewed Medical History HSV (herpes simplex virus) infection Diabetes mellitus type 2 in obese Chronic recurrent pilonidal cyst Asthma Testicular torsion Surgical History History of incision and drainage Social History Social History Household Members: Family Housing: Apartment Do you presently have visiting nurse or other home services: No Alcohol intake: never Second Hand Smoke Exposure: No Advance Directives: No Advance Directives Information Provided: No service: No Current occupational status: employed Physical Exam 2 Vital Signs: Vital Signs: Last Vital Signs Temp 97.8 F 06/18/24 14:00 Pulse 69 06/18/24 14:00 Resp 18 06/18/24 14:00 BP 132/81 06/18/24 14:00 Pulse Ox 98 06/18/24 14:00 O2 Del Method Room Air 06/18/24 14:00 BMI result Body Mass Index 33.7 Const: General: cooperative, no acute distress, alert and awake Nutritional Appearance: well nourished Orientation/consciousness: patient oriented x3 Limitations: no limitations HEENT: Head: Yes normal to inspection and Yes atraumatic Ears: hearing grossly normal bilaterally and external ears normal General nose exam: Normal external nose present, no nasal discharge noted and no epistaxis Face and sinus: Yes normal facial exam, No abrasion and No laceration Mouth: Normal oral and palatal mucosa present, no drooling and no muffled voice Eyes: General: appearance normal, both eyes and all related structures P eriorbital: periorbital findings normal Eyelids: Yes eyelids normal C onjunctivae: conjunctivae normal Pupils: Equal, round and reactive pupils present EOM: EOMs intact bilaterally Neck: Neck: Yes normal visual inspection, Yes full ROM and Yes no lymphadenopathy Chest: Chest palpation & inspection: normal inspection of the chest Chest/axillae images: 1. small erythematous area that is fluctuant with a larger surrounding indurated area Resp: Effort & Inspection: normal respiratory effort and able to speak in complete sentences GI: Inspection: Yes normal to inspection Neuro: General: patient oriented x3 and moves all extremities Cranial nerves: Yes Equal, round and reactive pupils present Cognition (Neuro): n ormal cognition Extrem: General: Yes normal to inspection, Yes full ROM and Yes capillary refill normal Psych: Appearance: grossly normal Mental Status: mental status grossly normal Affect: normal affect Attitude: cooperative Thought process: N ormal thought process present Thought content: Normal thought content present Insight: Good insight present (Psych) Course Course Course Narrative: This is a Rapid Medical Examination (RME) performed by Sherrill Mcnamara PA-C in triage. Full HPI, ROS, assessment and treatment plan per primary provider in the Main ED. 28 yo male hx of DM, pilonial cyst, here for eval of painful cyst to left armpit x1 wk. no fever/chills. no drainage. + erythematous areaw/ central fluctuance and surrounding induration noted to left armpit. Plan: basic labs, ?I&D Medical Decision Making Medical Decision Making [facility] Narrative: Patient is a 28 year old assigned male at with a history of DM presenting to the emergency department today with a left armpit abscess. Patient's physical exam showed a small abscess to the left axilla. Patient's blood work showed an elevated WBC count of 15 but were otherwise unremarkable. I explained my physical exam findings as well as all test results to the patient. I answered all questions asked by the patient. Patient's abscess was incised and drained, without incident, per procedure note. I stressed the importance of the patient taking his medication as directed (either prescribed or as the over the counter packaging recommends). I stressed the importance of the patient following up with his primary care provider and a general surgeon. I stressed the importance of the patient returning to the emergency department immediately if his symptoms were to worsen or if he were to develop any dizziness, shortness of breath, difficulty breathing, chest pain, blurry vision, loss of vision, nausea, vomiting, abdominal pain, fever, chills, back pain, or any other complaints. Patient verbalized agreement and understanding with this treatment plan and discharge. Differential Diagnosis Differential Diagnoses: The differential diagnosis associated with the presentation includes Abscess Admission/Observation Consideration of admission/observation: Escalation of care including admission/observation considered Patient would have been admitted to the hospital had his work up had any findings where hospital admission was appropriate and his clinical presentation warranted hospital admission. Lab Data [facility] Lab Attestation statement: I reviewed the patient's lab results. My interpretation of these results are in the [facility] Rationale portion of this note. 06/18/24 14:14 06/18/24 14:14 Labs: Lab Results 06/18/24 Range/Units 14:14 WBC 15.0 H (4.8-10.8) X10*3/uL RBC 5.04 (4.60-5.80) X10*6/uL Hgb 15.7 (14.0-18.0) g/dl Hct 43.3 (42.0-52.0) % MCV 85.9 (80.0-98.0) fL MCH 31.2 (27.0-33.0) pg MCHC 36.3 H (31.0-36.0) g/dl RDW 12.0 (11.0-16.0) % Plt Count 318 (160-400) X10*3/uL MPV 10.1 (9.4-12.4) fL Immature Gran % (Auto) 0.7 H (0.0-0.4) % Neut % (Auto) 63.3 (45-73) % Lymph % (Auto) 27.6 (20-40) % [place] % (Auto) 6.7 (2-11) % Eos % (Auto) 1.0 (0-4) % Baso % (Auto) 0.7 (0-2) % Lymph # (Auto) 4.1 (1.2-4.9) X10*3/uL [place] # (Auto) 1.0 (0.1-1.2) X10*3/uL Eos # (Auto) 0.2 (0.0-0.4) X10*3/uL Baso # (Auto) 0.1 (0.0-0.2) X10*3/uL Abs Immat Gran (auto) 0.10 H (0.00-0.03) X10*3/uL Absolute Neuts (auto) 9.5 H (2.0-8.3) x10*3/uL Absolute Nucleated RBC 0.000 (0.0-0.012) X10*3/uL Nucleated RBC % (auto) 0.0 (0.0-0.2) /100WBC Sodium 138 (135-145) mmol/L Potassium 4.0 (3.3-5.1) mmol/L Chloride 101 (96-108) mmol/L Carbon Dioxide 30 H (22-29) mmol/L Anion Gap 11 L (12-20) BUN 10 (9-16) mg/dL Creatinine 0.96 (0.5-1.4) mg/dL Estim Creat Clear Calc 129.7 Estimated GFR > 60 Random Glucose 241 H (60-115) mg/dL Calcium 9.7 D (8.4-10.2) mg/dL Total Bilirubin 0.7 (0.0-1.0) mg/dL AST 17 (5-37) U/L ALT 30 (0-40) U/L Alkaline Phosphatase 63 (39-117) U/L Total Protein 7.7 (6.5-8.0) g/dL Albumin 4.4 (3.5-5.0) g/dL Prescription Management I considered prescription management with: Antibiotic (patient prescribed antibiotics for abscess given his hx of DM) Chronic Conditions Patient?s care impacted by: Diabetes Procedures Abscess I/D Site: other (axilla) Side (if applicable): left Technique: needle aspiration Amount of fluid expressed (mL): 3 Sent for culture/gram staining?: No Irrigation: No Packing used?: none Discharge Plan Discharge Clinical Impression: Abscess Patient Disposition: Home, Self-Care Instructions: Abscess (ED), Abscess Incision and Drainage (DC) Additional Instructions: Follow up with your primary care provider and a general surgeon. Take your medicine as prescribed. Allow the area to continue draining. Apply warm compresses to the area. Return to the emergency department immediately if your symptoms worsen or if you develop any dizziness, shortness of breath, difficulty breathing, chest pain, blurry vision, loss of vision, nausea, vomiting, abdominal pain, fever, chills, back pain, or any other complaints. Prescriptions: New cephalexin 500 mg capsule 500 mg PO Q6H 7 Days Qty: 28 0RF doxycycline hyclate 100 mg tablet 100 mg PO BID 7 Days Qty: 14 0RF No Action insulin aspart U-100 [Novolog U-100 Insulin aspart] 100 unit/mL solution See Rx Instructions subcut DAILY Qty: 30 1RF Rx Instructions: Sliding Scale subcut daily; insulin glargine [Lantus U-100 Insulin] 100 unit/mL solution 16.8 unit subcut DAILY Qty: 10 1RF valacyclovir 500 mg tablet 500 mg PO BID Qty: 6 0RF valacyclovir 1 gram tablet 1,000 mg PO BID Qty: 14 0RF valacyclovir [Valtrex] 1 gram tablet 1,000 mg PO BID 10 Days Qty: 20 0RF valacyclovir [Valtrex] 1 gram tablet 1,000 mg PO BID 10 Days Qty: 20 1RF Referrals: [facility] [place] [facility] [place] [Provider Group] (Call to establish and follow up with a general surgeon for your abscess.) [facility] [place] [place] Family Medicine [Provider Group] (Call to establish and follow up with a primary care provider. If you already have a primary care provider, please follow up with them.) [facility] [place] [facility] [place] Primary Care, Shaina [Provider Group] (Call to establish and follow up with a primary care provider. If you already have a primary care provider, please follow up with them.) [facility] [place] [place] [facility] [place] Primary Care,Alissa [Provider Group] (Call to establish and follow up with a primary care provider. If you already have a primary care provider, please follow up with them.) Print Language: Malaysian
[2024-06-18 14:00] VITALS: BP 132/81; PULSE 69; RESP 18; TEMP 36.6; O2SAT 98
[2024-06-18 14:18] LABS: MANUAL DIFF FLAG NO
[2024-06-18 14:19] LABS: Basophils Absolute Auto 0.1 X10*3/uL (0.0-0.2); Basophils Percent Auto 0.7 % (0-2); Eosinophils Absolute Auto 0.2 X10*3/uL (0.0-0.4); Hematocrit 43.3 % (42.0-52.0); Hemoglobin 15.7 g/dl (14.0-18.0); Imm Gran Pct Auto 0.7 % (0.0-0.4); Lymphocytes Absolute Auto 4.1 X10*3/uL (1.2-4.9); Lymphocytes Percent Auto 27.6 % (20-40); Mean Corpuscular HGB Conc 36.3 g/dl (31.0-36.0); Mean Corpuscular Hemoglobin 31.2 pg (27.0-33.0); Mean Corpuscular Volume 85.9 fL (80.0-98.0); Mean Platelet Volume 10.1 fL (9.4-12.4); Monocytes Percent Auto 6.7 % (2-11); Neutrophils Absolute Auto 9.5 x10*3/uL (2.0-8.3); Neutrophils Percent Auto 63.3 % (45-73); Platelet Count 318 X10*3/uL (160-400); Red Blood Count 5.04 X10*6/uL (4.60-5.80)
[2024-06-18 14:36] LABS: Alanine Aminotransferase 30 U/L (0-40); Albumin Level 4.4 g/dL (3.5-5.0); Alkaline Phosphatase 63 U/L (39-117); Anion Gap 11 (12-20); Aspartate Amino Transferase 17 U/L (5-37); Bilirubin Total 0.7 mg/dL (0.0-1.0); Blood Urea Nitrogen 10 mg/dL (9-16); Calcium 9.7 mg/dL (8.4-10.2); Carbon Dioxide 30 mmol/L (22-29); Chloride 101 mmol/L (96-108); Creatinine Clr Calc Pharmacy 129.7; Estimated Glomerular Filt Rate > 60; Glucose Random 241 mg/dL (60-115); Sodium 138 mmol/L (135-145); Total Protein 7.7 g/dL (6.5-8.0)
[2024-06-18 16:13] VITALS: BP 132/81; PULSE 69; RESP 18; TEMP 36.6; O2SAT 98
== END 2024-06-18 16:14 | disposition home or self-care (01) ==
PROVIDERS: Physician Assistant Medical; Emergency Provider Emergency Medicine
DX: L02.412 Cutaneous abscess of left axilla (principal); M79.622 Pain in left upper arm
CPT/HCPCS: 10060; 36415; 80053; 85025; 99283; 99284